=== PATIENT | female | born 1955 | race Caucasian/White ===

== ENCOUNTER → 2018-02-13 | Outpatient (REF) | payer BC, MEDICAID ==
[2018-02-14 13:19] LABS: FERRITIN 252 NG/ML (8-252); IRON (FE) 90 UG/DL (50-170); PERCENT SATURATION 36.7 % (13.2-45.0); TOTAL IRON BINDING CAPACITY 245 UG/DL (250-450)
[2018-02-15 08:15] LABS: FOLATE > 24.0 NG/ML; VITAMIN B12 LEVEL 832 PG/ML
== END ==
LOC: M LAB REF 12:28
DX: D50.9 Iron deficiency anemia, unspecified (principal)
CPT/HCPCS: 82746

== ENCOUNTER → 2018-11-05 | Outpatient (REF) | payer BC, MEDICAID | LOC: M LAB REF 14:49 | PROVIDERS: ATTEND Obstetrics & Gynecology | DX: C50.911 Malignant neoplasm of unspecified site of right female breast (principal) ==

== ENCOUNTER → 2018-11-21 | Outpatient (CLI) | payer MEDICARE, MEDICAID ==
[~2018-11-21] MED LIST: EMLA CREAM 5GM (LIDOCAINE/PRILOCAINE) As Ordered ONE; GASTROGRAFIN SOLUTION 30ML (Q9963) As Ordered ONE; ISOVUE-370 76% 100ML VIAL (Q9967) As Ordered ONE
--- NOTE | 2018-11-21 16:24 | REP ---
CT chest with IV contrast: History: Breast carcinoma. Staging. Left breast. CT contrast dose: 100 mL of intravenous Isovue 370. No comparison chest CT. CT findings: Preliminary digital sanitation officer radiograph is unremarkable. An enhancing mass is seen in the left breast laterally corresponding to the by recently biopsied lesion. This measures 2.[address] There is suspicious left axillary and left subclavian lymphadenopathy. There is one lymph node partially seen just above the clavicle on the left which is incompletely imaged and indeterminate. No mediastinal adenopathy is observed. No hilar adenopathy is seen. There is coronary artery vascular calcification. A right-sided Tdmnzq-M-Elff is noted. No internal mammary adenopathy is seen. No pleural or pericardial effusion is evident. There are numerous subcentimeter small pulmonary nodules bilaterally. I cannot exclude pulmonary metastatic disease. The largest of these measures 5 mm. No bony destructive lesion is appreciated. Impression: 2.4 cm mass in the upper outer quadrant of the left breast with the suspicious left axillary left subclavian, left subpectoral, and possibly left supraclavicular adenopathy. The supraclavicular node is incompletely seen at the top of the imaging field of view. There are multiple subcentimeter pulmonary nodules bilaterally which could represent pulmonary metastasis. The pulmonary nodules in the left upper lobe are new when compared with the [address] study of the left shoulder. No other prior CT imaging. Electronically Signed by Cyrus Carvalho MD 11/21/2018 05:27 P
--- NOTE | 2018-11-21 16:25 | REP ---
CT abdomen and pelvis with IV and oral contrast: History: Breast carcinoma. Staging. No comparison CTs. CT contrast dose: 100 ml of intravenous Isovue 370. CT findings: The liver and the spleen are normal in size and homogeneous in texture. Normal adrenal glands are seen bilaterally. There is an accessory splenule posterior to the spleen. No abnormalities noted in the gallbladder. No pancreatic mass or cyst is seen. No upper abdominal adenopathy is appreciated. No retroperitoneal mass or adenopathy is observed. There is a retroaortic left renal vein noted incidentally. No abdominal wall defect is seen. Uterus is retroverted and tipped to the right. No uterine or ovarian mass is seen. No ascites. Normal urinary bladder. Small and large intestinal bowel loops are normal in appearance. A normal appendix is seen. No bony destructive lesion is appreciated. There is a wedge compression deformity at the L1 vertebral body. There is approximately 50% loss of anterior vertebral body height at this level. In addition there is a radiolucency with sclerotic margins in the superior endplate at L5 posteriorly and to the left consistent with a Schmorl's node. Degenerative spondylosis changes are noted. These changes appear chronic. Impression: No evidence to suggest intra-abdominal metastasis. Wedge compression fracture deformity at the L1 and degenerative spondylosis changes which appear chronic in the lumbar spine. Electronically Signed by Cyrus Carvalho MD 11/21/2018 05:27 P
== END ==
LOC: M RAD 12:01
PROVIDERS: ATTEND Internal Medicine Hematology & Oncology
DX: C50.412 Malignant neoplasm of upper-outer quadrant of left female breast (principal); R91.8 Other nonspecific abnormal finding of lung field; R59.0 Localized enlarged lymph nodes
CPT/HCPCS: 71260; 74177; Q9963; Q9967

== ENCOUNTER → 2018-12-05 | Outpatient (CLI) | payer MEDICARE, MEDICAID ==
[~2018-12-05] MED LIST changes: +ALPH0.156; +B COTAB3 PO; +DORZ2SOL4; -EMLA CREAM 5GM (LIDOCAINE/PRILOCAINE) As Ordered ONE; +FERR240T PO; -GASTROGRAFIN SOLUTION 30ML (Q9963) As Ordered ONE; +GLUC1KIT PO; +INSUHUMDS; +INSULANT; -ISOVUE-370 76% 100ML VIAL (Q9967) As Ordered ONE; +LISI10TA4 PO; +MAGN1CAP PO; +MOME50SP NARES; +MULT1TAB18 PO; +PANT20TA2 PO; +PRENTAB45 PO; +RED600TA PO; +TIMO0.5S29; +TRIA37.5 PO; +VITA200016 PO; +VITAE20CA PO; +ZYRT10CA5 PO
--- NOTE | 2018-12-05 22:26 | ECHO ---
DATE OF PROCEDURE: 12/05/2018 REFERRING PHYSICIAN: Dr. Luba Snyder INDICATION: Chemotherapy that may affect the heart. HEIGHT: 62 inches WEIGHT: 142 pounds 2D MEASUREMENTS: Left ventricle diastole: 4.1 cm Left atrium: 3.0 cm Aortic root: 2.5 cm Ventricular septum: 0.82 cm Posterior wall: 0.81 cm Inferior vena cava: 2.0 cm with more than 50% respiratory variation. DOPPLER MEASUREMENTS: Trace aortic regurgitation. Peak aortic valve velocity 145 cm/s LVOT velocity: 120 cm/s LVOT VTI: 28.4 cm Very mild mitral regurgitation. Mitral E velocity: 117 cm/s Mitral A velocity: 106 cm/s Mitral deceleration time: 225 ms Pulmonary artery systolic pressure: 17 mmHg MITRAL ANNULAR TISSUE DOPPLER: E prime septal: 6.7 cm/s E prime lateral: 6.9 cm/s DESCRIPTION: Rhythm was sinus. Image quality was fair. No pericardial effusion. This is a 2D, M-mode, color flow Doppler and pulse wave Doppler examination that included mitral annular tissue Doppler. CONCLUSIONS: 1. Normal left ventricle internal dimensions and wall thickness. Normal regional left ventricle (LV) wall motion and wall thickening. Normal LV systolic function. Left ventricular ejection fraction (LVEF) 71% (3D quantitation). Normal LV diastolic function for age. No regional wall motion abnormalities of the left ventricle. 2. Normal right ventricle size and systolic function. 3. Mild aortic valve sclerosis of the three-cuspid aortic valve. Trace aortic regurgitation. 4. Very mild mitral annular calcification. Very mild mitral regurgitation. 5. Otherwise, normal appearing echocardiogram Doppler findings.
== END ==
LOC: M CARPUL 08:50
PROVIDERS: ATTEND Internal Medicine Hematology & Oncology
DX: C50.919 Malignant neoplasm of unspecified site of unspecified female breast (principal); Z79.899 Other long term (current) drug therapy

== ENCOUNTER → 2018-12-24 | Outpatient (CLI) | payer MEDICARE, MEDICAID ==
--- NOTE | 2018-12-25 09:34 | REP ---
PET/CT: History: Staging breast carcinoma. Comparisons: Comparison chest CT study November 21, 2018. TECHNIQUE: 56 minutes following the intravenous injection of a 8.1 mCi dose of F-18 FDG, three-dimensional PET scintigraphy is acquired from the skull base to the proximal thighs. Triplanar noncontrast CT scanning is acquired through the same anatomic range for attenuation correction, and image registration with scan parameters optimized to minimize radiation exposure to the patient. PET scintigraphy and CT datasets were fused and displayed on a workstation with multiplanar and projection display capability. PET/CT Findings: The biopsy-proven malignant mass in the left inferolateral breast is hypermetabolic with maximum standard uptake value 7.2. There are multiple hypermetabolic left axillary lymph nodes in the most avid of which has a maximum standard uptake value of 6.35. There is a very small but mildly hypermetabolic left supraclavicular lymph node with maximum standard uptake value 2.79. No internal mammary or mediastinal hypermetabolic uptake is seen. There are multiple noncalcified pulmonary nodules all of which are well under a centimeter in size. There is observable uptake in one of the left upper lobe nodules but it is not hypermetabolic, maximum SUV value 1.25. No abnormal hypermetabolic uptake is seen within the thorax. No abnormal uptake is seen in the abdomen or pelvis. This study is otherwise unremarkable. Impression: Hypermetabolic uptake in the known left breast mass, left axillary adenopathy, left supraclavicular adenopathy. No hypermetabolic uptake is seen in any of the small subcentimeter pulmonary nodules noted bilaterally. Electronically Signed by Cyrus Carvalho MD 12/25/2018 10:15 A
== END ==
LOC: M PLARAD 15:25
PROVIDERS: ATTEND Internal Medicine Hematology & Oncology
DX: C50.912 Malignant neoplasm of unspecified site of left female breast (principal); R59.0 Localized enlarged lymph nodes; R91.8 Other nonspecific abnormal finding of lung field
CPT/HCPCS: 78815; A9552

== ENCOUNTER → 2018-12-31 | Outpatient (CLI) | payer MEDICARE, MEDICAID ==
[~2018-12-31] MED LIST changes: +PROHANCE 279.3MG/ML 15ML VIAL (A9576) As Ordered ONE
--- NOTE | 2018-12-31 13:29 | REP ---
MRI BRAIN WITHOUT AND WITH IV GADOLINIUM: HISTORY: Headaches. Question brain metastasis. Breast carcinoma. Comparison PET/CT study December 24, 2018. TECHNIQUE: Axial and sagittal imaging planes are utilized for T1- and T2-weighted scans. Sequences include spin-echo, fast spin echo, FLAIR, and diffusion weighted sequences. Gadolinium enhancement dose is 6 ml of intravenous ProHance. MRI FINDINGS: Craniocervical junction and upper cervical cord are normal. No bony calvarial destructive lesion is seen. No intraorbital abnormality is observed. There is no MR evidence of significant paranasal sinus disease. The skull base and deep facial soft tissues are unremarkable. Diffusion weighted scan show no evidence to suggest acute ischemia or other cause of restricted diffusion. Post-gadolinium enhanced images demonstrate artifactual linear signal on either side in the occipital lobes related to an aliasing artifact. There is no abnormal intracranial gadolinium enhancement. Enhancement is seen in normal vascular structures. There is no evidence of mass, infarct, hemorrhage or midline shift. IMPRESSION: There is no evidence of intracranial metastasis. Electronically Signed by Cyrus Carvalho MD 12/31/2018 02:46 P
== END ==
LOC: M RAD 11:16
PROVIDERS: ATTEND Internal Medicine
DX: C50.512 Malignant neoplasm of lower-outer quadrant of left female breast (principal); R51 Headache
CPT/HCPCS: 70553; A9576

== ENCOUNTER 2019-01-16 15:24 | Emergency (ER) | payer MEDICARE, MEDICAID ==
[~2019-01-16] VITALS: Ht 157.5 cm; Wt 64.7 kg
[~2019-01-16 15:24] MED LIST changes: +DECA4TAB PO; +ONDA8TAB8 PO; -PROHANCE 279.3MG/ML 15ML VIAL (A9576) As Ordered ONE; +SERT25TA85 PO
[2019-01-16 16:38] LABS: HEMATOCRIT 36.2 % (36.0-47.0); HEMOGLOBIN 11.7 g/dl (12.0-15.5); MEAN CORPUSCULAR HEMOGLOBIN 30.2 pg (27.0-33.0); MEAN CORPUSCULAR HGB CONC 32.3 g/dl (32.0-36.5); MEAN CORPUSCULAR VOLUME 93.3 fl (80.0-96.0); PLATELET COUNT, AUTOMATED 181 10^3/uL (150-450); RED BLOOD COUNT 3.88 10^6/uL (4.00-5.40); WHITE BLOOD COUNT 11.9 10^3/uL (4.0-10.0)
[2019-01-16] MEDS ORDERED: GI COCKTAIL 50ML BTL(HYOSCYAMINE/MAALOX/LIDOCAINE VISCOUS)(1:3:1) PO ONE (16:45)
--- NOTE | 2019-01-16 16:58 | REP ---
Portable chest x-ray: Single view: History: Chest pain. Findings: A right-sided Wlbltk-B-Ruig catheter seen in place with its tip in the expected location of the superior vena cava. EKG electrodes are seen. The right hemidiaphragm is slightly elevated. No infiltrate is seen. Pleural angles are sharp. Heart is not enlarged. Impression: No active disease. Somewhat elevated right hemidiaphragm. Right-sided Eymdah-U-Fhht catheter. Electronically Signed by Cyrus Carvalho MD 01/17/2019 01:42 P
[2019-01-16 17:03] LABS: BLOOD UREA NITROGEN 24 MG/DL (7-18); CALCIUM LEVEL 8.3 MG/DL (8.8-10.2); CARBON DIOXIDE LEVEL 27 MEQ/L (21-32); CHLORIDE LEVEL 107 MEQ/L (98-107); CPK CREATINE PHOSPHOKINASE 48 U/L (26-192); GLOMERULAR FILTRATION RATE > 60.0 (>45); GLUCOSE, FASTING 180 MG/DL (70-100); MB/CK RELATIVE INDEX 5.21 (< OR =4); POTASSIUM SERUM 4.1 MEQ/L (3.5-5.1); SODIUM LEVEL 141 MEQ/L (136-145); TROPONIN I 0.08 NG/ML (< 0.10)
[2019-01-16] MEDS ORDERED: ISOVUE-370 76% 125ML VIAL (Q9967 PER ML) As Ordered ONE (17:32)
[2019-01-16 17:44] LABS: LYMPHOCYTES 14 % (16-52); MONOCYTES 1 % (0-8); NEUTROPHILS 84 % (35-75)
[2019-01-16 17:46] LABS: PLATELET ESTIMATE NORMAL (NORMAL)
[2019-01-16] MEDS ORDERED: SUCR1SS PO (18:26)
[2019-01-16 18:30] VITALS: BP 152/67
--- NOTE | 2019-01-16 18:46 | REP ---
CT ANGIO CHEST: HISTORY: Chest pain. CONTRAST: Isovue-370, 75 mL COMPARISON: CT chest 11/21/2018. There are no filling defects in the main, right and left pulmonary arteries or their branches. Multiple tiny nodules are present in the lungs that may represent metastases. There is no pleural effusion. The heart is normal in size. There is no mediastinal mass. A hiatal hernia is present. Degenerative change is present in the thoracic spine. A mass is present in the left breast. This is incompletely seen. Several enlarged lymph nodes 1.4 to 1.8 cm are present in the left axilla. IMPRESSION: 1. There is no pulmonary embolism. 2. There are multiple tiny parenchymal nodules in the lungs that may represent metastases. 3. Left breast mass incompletely seen in the present examination. 4. Left axillary lymphadenopathy. Electronically Signed by Benny Nowak MD 01/16/2019 06:48 P
--- NOTE | 2019-01-17 06:25 | ECGEPIP ---
Stationary ECG Study [facility] - ED Test Date: 2019-01-16 Pat Name: PRESTON YANEZ Department: Room: - Gender: F Assistant Warehouse Manager: : 1955 Requested By: GILBERT RADER PA-C. Order Number: [id number] Reading MD: Kraig Ho Measurements Intervals [place] Rate: 89 P: 80 MN: 146 QRS: -35 QRSD: 75 T: 70 QT: 343 QTc: 418 Interpretive Statements SINUS RHYTHM LEFT ATRIAL ENLARGEMENT LEFT AXIS DEVIATION NO PRIORS FOR COMPARISON Electronically Signed On 01-17-2019 6:25:24 EDT by Kraig Ho
--- NOTE | 2019-01-17 10:31 | ED PDOC ---
Post-Departure Follow-Up dr mayer faxed formal report of cta chest for fu Sole Montilla MD Jan 17, 2019 10:31
[2019-01-22] MEDS ORDERED: SUCR1SS PO (07:55)
[2019-01-22] MEDS ORDERED: SUCR1SUS PO (10:56)
--- NOTE | 2019-01-22 13:58 | ED PDOC ---
Post-Departure Follow-Up Dr mayer unable to follow up w pt. pt sent a certified letter regarding CTA. When pt calls back please personally help that pt get into a surgeon's office. Call surgeon and help facilitate the appt. Sole Montilla MD Jan 22, 2019 13:58
[2019-01-30] MEDS ORDERED: DIPH2.5T14 PO ×2 (08:54→08:56)
[2019-02-03] MEDS ORDERED: CLAR10CA3 PO (10:10)
== END 2019-01-16 18:52 | disposition home or self-care (01) ==
LOC: M ED 15:24
DX: K21.0 Gastro-esophageal reflux disease with esophagitis (principal); R07.89 Other chest pain; R11.0 Nausea; I10 Essential (primary) hypertension; E10.319 Type 1 diabetes mellitus with unspecified diabetic retinopathy without macular edema; C50.012 Malignant neoplasm of nipple and areola, left female breast; Z79.899 Other long term (current) drug therapy
CPT/HCPCS: 71045; 71275; 80048; 82550; 82553; 84484; 85025; 85379; 93005; 93041; 94760; 99285; Q9967

== ENCOUNTER → 2019-02-25 | Outpatient (REF) | payer MEDICARE, MEDICAID ==
[~2019-02-25] MED LIST changes: +ALLE10TA62 PO; +CLAR10CA3 PO; +DIPH2.5T14 PO; +MULT1TAB8 PO; +PANT40TA3 PO; +SUCR1SS PO; +SUCR1SUS PO
== END ==
LOC: M LAB REF 12:16
PROVIDERS: ATTEND Nurse Practitioner Adult Health
DX: E10.69 Type 1 diabetes mellitus with other specified complication (principal); E10.311 Type 1 diabetes mellitus with unspecified diabetic retinopathy with macular edema

== ENCOUNTER → 2019-03-18 | Outpatient (CLI) | payer MEDICARE, MEDICAID ==
--- NOTE | 2019-03-18 19:18 | ECHO ---
DATE OF PROCEDURE: 03/18/2019 REFERRING PROVIDER: ZELALEM Perez INDICATION: Chemotherapy. Height 160 cm, weight 64 kg. DIMENSIONS IVS: 0.9 LV: 3.6 LVPW: 1.1 LA: 3.1 Aorta: 2.8 IVC: 2.3 Mitral E wave velocity: 115 A wave: 117 E prime septal: 9.5 E prime lateral: 9.0 FINDINGS: The study is of acceptable technical quality. There are poor parasternal views but good apical views. Left ventricle is normal size and has hyperdynamic contractility. I estimate left ventricular ejection fraction (LVEF) 70-75%. No segmental wall motion abnormalities are appreciated. Right ventricle also appears normal. Both atria appear normal. Aortic, mitral and tricuspid valves appear normal. Pulmonic valve was not visualized. Trivial pericardial effusion is noted. Inferior vena cava is dilated, and there is no appreciable collapse with respiration indicative of likely elevated central venous pressure. Aortic root is normal. Aortic arch and abdominal aorta also appear normal. Doppler interrogation reveals no aortic stenosis and mild aortic insufficiency. There is mild mitral and trace tricuspid insufficiency. Calculated pulmonary artery pressure is probably in 30s corresponding to mild pulmonary hypertension. Mitral inflow pattern and tissue Doppler imaging of mitral annulus revealed probably normal diastolic function even though mitral E and A waves have approximately same velocities. CONCLUSIONS: 1. Study is of acceptable technical quality. 2. Normal left ventricular (LV) size with hyperdynamic LV systolic function and probably normal diastolic function. 3. Mild mitral and aortic insufficiency. 4. High central venous pressure and at least mild pulmonary hypertension. 5. Trivial pericardial effusion. COMMENT: Subacute bacterial endocarditis (SBE) prophylaxis is not recommended.
== END ==
LOC: M CARPUL 09:18
PROVIDERS: ATTEND Nurse Practitioner Family
DX: C50.912 Malignant neoplasm of unspecified site of left female breast (principal); I38 Endocarditis, valve unspecified

== ENCOUNTER → 2019-03-28 | Outpatient (CLI) | payer MEDICARE, MEDICAID ==
--- NOTE | 2019-03-28 09:35 | REP ---
CT NECK WITHOUT CONTRAST: HISTORY: Breast carcinoma restaging. The naso-, shivam- and hypopharynx, larynx and subglottic trachea are normal in appearance. The salivary glands are normal in size and density. A 3 mm hypodensity is present in the left thyroid lobe. This most likely represents a cyst. The right thyroid lobe is normal in size and density. Small lymph nodes less than 1 cm in size are present in the internal jugular chains, posterior triangles and submandibular areas. Atherosclerotic calcification is present at the carotid bifurcations. Degenerative change is present in the cervical spine. Scarring is present in the left lung apex. The sinuses are clear. IMPRESSION: 1. There is no neck mass or adenopathy. 2. There is a 3 mm hypodensity in the left thyroid lobe. This most likely represents a cyst. Electronically Signed by Benny Nowak MD 03/28/2019 10:05 A
--- NOTE | 2019-03-28 10:47 | REP ---
CT chest without contrast: History: Restaging breast carcinoma, stage 2-[address] study January 16, 2019. CT study from November 21, [address] findings: Preliminary digital magnetic tester radiograph demonstrates elevation of the right hemidiaphragm. There is some discoid atelectasis in the right middle lobe and lower lobe distribution associated with this. The previously noted left axillary lymphadenopathy is radiographically resolved. No supraclavicular adenopathy is seen. A right-sided Netypp-B-Hmkd catheter is noted. Coronary artery vascular calcification is noted. There is no evidence of pleural or pericardial effusion. The previously noted pulmonary nodular densities are virtually resolved as well. There are two or three residual tiny 2-3 mm nodules visible, one in the right upper lobe and the other two in the right lower lobe. No acute bony abnormality is appreciated. There is old wedge compression deformity in one of the upper lumbar vertebrae unchanged. Heterogeneous fibroglandular tissue is seen in the breast parenchyma bilaterally. The previously noted left breast mass is not definitely apparent although this was most conspicuous due to its contrast enhancement on the November 21, 2018 study. No adrenal lesion is seen. The visualized upper abdominal structures are unremarkable. Impression: Elevated right hemidiaphragm and atelectatic changes in the right middle and lower lobes. Significant response noted. No new metastatic lesions seen. Electronically Signed by Cyrus Carvalho MD 03/28/2019 03:56 P
== END ==
LOC: M RAD 08:54
PROVIDERS: ATTEND Nurse Practitioner Family
DX: C50.912 Malignant neoplasm of unspecified site of left female breast (principal); J98.11 Atelectasis; E07.9 Disorder of thyroid, unspecified

== ENCOUNTER → 2019-06-10 | Outpatient (CLI) | payer MEDICARE, MEDICAID ==
[~2019-06-10] MED LIST changes: +BIOT10TA2 PO; +KETO2CR TOP; +LEVO0.5S15 OP
--- NOTE | 2019-06-10 11:04 | REP ---
Duplex extremity venous ultrasound: Bilateral lower extremities. History: History of bilateral leg swelling. Question DVT. Findings: The deep veins are anechoic and fully compressible from the groin to the popliteal fossa in the left and right lower extremity. Color flow imaging is homogeneous. Spectral Doppler interrogation demonstrates intact respiratory variation in flow and normal manual augmentation of flow. There is no evidence of deep vein thrombosis. Impression: Negative bilateral lower extremity duplex venous ultrasound. No evidence of deep vein thrombosis. Electronically Signed by Cyrus Carvalho MD 06/10/2019 10:55 A
--- NOTE | 2019-06-10 11:30 | MEDONCTEEN ---
Date/Time of Encounter Date of Encounter: Jun 10, 2019 Time of Encounter: 11:30 Telephone Encounter The patient was called voice mail kicked in message left to call if any questions Luba Snyder MD Jun 10, 2019 11:30
--- NOTE | 2019-06-10 18:55 | ECHO ---
DATE OF PROCEDURE: 06/10/2019 REFERRING PHYSICIAN: Luba Snyder INDICATION: Chemotherapy. Height 160 cm, weight 64 kg. DIMENSIONS: IVS: 0.8 LV: 4.1 LVPW: 0.7 LA: 2.9 Aorta: 2.7 IVC: 1.8 Mitral E wave velocity: 123 A wave: 117 FINDINGS: The study is of good technical quality. The patient is in sinus rhythm. Left ventricle is of normal size and systolic function. I estimate left ventricular ejection fraction (LVEF) 65-70%. No segmental wall motion abnormalities were appreciated. Right ventricle is also normal size and systolic function. Both atria appear normal. Aortic valve appears normal. It is tricuspid and has preserved mobility. Same applies for mitral and tricuspid valves, which appear structurally normal. Pulmonic valve was not well seen. No pericardial effusion is noted. Inferior vena cava is normal size. Aortic root is normal. Aortic arch and abdominal aorta were poorly visualized. Doppler interrogation of aortic valve reveals no stenosis and mild insufficiency. There is trace mitral insufficiency. Tricuspid valve is functionally competent. There is only limited evaluation of diastolic function with absent tissue Doppler velocities of mitral annulus, but based on available information, the patient likely has preserved left ventricular diastolic function. CONCLUSIONS: 1. Study is of good technical quality. 2. Normal left ventricular (LV) size and systolic function and likely also normal diastolic function. 3. Mild aortic insufficiency. 4. Normal central venous pressure. 5. Unable to estimate pulmonary artery pressure but no signs to suggest pulmonary hypertension. COMMENT: Subacute bacterial endocarditis (SBE) prophylaxis is not recommended.
== END ==
LOC: M RAD 07:49
PROVIDERS: ATTEND Internal Medicine Hematology & Oncology
DX: R22.43 Localized swelling, mass and lump, lower limb, bilateral (principal); C50.912 Malignant neoplasm of unspecified site of left female breast; Z79.899 Other long term (current) drug therapy

== ENCOUNTER → 2019-08-26 | Outpatient (CLI) | payer MEDICARE, MEDICAID ==
[~2019-08-26] MED LIST changes: +VITA400C5 PO
--- NOTE | 2019-08-27 09:34 | REP ---
PET/CT: History: Restaging malignant neoplasm of the breast with the known laurent and pulmonary parenchymal nodular metastasis. Status post chemotherapy. Comparisons: Comparison PET/CT study December 24, 2018. TECHNIQUE: 50 minutes following the intravenous injection of a 8.55 mCi dose of F-18 FDG, three-dimensional PET scintigraphy is acquired from the skull base to the proximal thighs. Triplanar noncontrast CT scanning is acquired through the same anatomic range for attenuation correction, and image registration with scan parameters optimized to minimize radiation exposure to the patient. PET scintigraphy and CT datasets were fused and displayed on a workstation with multiplanar and projection display capability. PET/CT Findings: There is significant improvement. There is no longer evidence of a mass or hypermetabolic uptake in the left breast. Maximum standard uptake value in the inferolateral aspect of the left breast is normal at 1.7. There is no evidence of axillary adenopathy or axillary hypermetabolic uptake. No supraclavicular adenopathy or hypermetabolic uptake is seen. Head and neck soft tissues are unremarkable. No abnormal hypermetabolic uptake is seen within the chest cavity or mediastinum or hilar regions. There is a new pulmonary finding however in that there is a fairly large quantity of inspissated endobronchial mucoid material in the right bronchus intermedius and right lower lobe bronchi centrally. This is associated with some right lower lobe discoid atelectasis at the base. This is a new finding. There is bronchial wall calcification noted bilaterally. There is no hypermetabolic uptake associated with the inspissated endobronchial material. In the abdomen and pelvis, there is normal hepatic, splenic, gastrointestinal, and genitourinary FDG distribution. No abnormal hypermetabolic uptake is seen in the abdomen or pelvis. The scan is otherwise unremarkable. Impression: PET scintigraphy is significantly improved with resolution of previously noted hypermetabolic uptake. No abnormal hypermetabolic uptake is seen today. There is a new finding however in the lungs of note. There is a fairly large amount of inspissated endobronchial mucoid material in the bronchus intermedius and central bronchi of the right lower lobe with right lower lobe plate-like atelectasis. No hypermetabolic uptake is seen associated with this. Electronically Signed by Cyrus Carvalho MD 08/27/2019 09:51 A
== END ==
LOC: M PLARAD 14:24
PROVIDERS: ATTEND Internal Medicine Hematology & Oncology
DX: C50.412 Malignant neoplasm of upper-outer quadrant of left female breast (principal); C78.00 Secondary malignant neoplasm of unspecified lung; Z92.21 Personal history of antineoplastic chemotherapy
CPT/HCPCS: 78815; A9552

== ENCOUNTER → 2019-09-02 | Outpatient (CLI) | payer MEDICARE, MEDICAID ==
--- NOTE | 2019-09-02 19:47 | ECHO ---
DATE OF PROCEDURE: 09/02/2019 REFERRING PHYSICIAN: Dr. Emily Alvarez INDICATION: Chemotherapy. Height 160 cm, weight 62 kg. DIMENSIONS: IVS: 0.9 LV: 3.9 LVPW: 1.0 LA: 3.1 Aorta: 2.7 RV: 2.7 IVC: 1.8 Left atrial volume index: 18 Mitral E wave velocity: 129 A wave: 123 E prime septal: 7.8 E prime lateral: 10.6 FINDINGS: The study is of good technical quality. The patient is in sinus rhythm. Left ventricle is normal size and has normal systolic function, estimated left ventricular ejection fraction (LVEF) around 65%. Right ventricle is also normal size and systolic function. Both atria appear normal. All four cardiac valves were well seen and appear normal. No pericardial effusion is noted. Inferior vena cava is normal size. Aortic root, aortic arch and visualized segment of abdominal aorta all appear normal. Doppler interrogation of aortic valve reveals no stenosis and trace insufficiency. There is also trace mitral and tricuspid insufficiency. Pulmonic valve also exhibits trivial insufficiency. Mitral inflow pattern and tissue Doppler imaging of mitral annulus revealed normal diastolic function. CONCLUSIONS: 1. Study is of good technical quality. 2. Normal left ventricular (LV) size, systolic and diastolic function. 3. Mild aortic insufficiency. 4. Trace mitral, tricuspid and pulmonic insufficiency. 5. Normal central venous pressure. 6. Unable to estimate pulmonary artery pressure. COMMENT: Subacute bacterial endocarditis (SBE) prophylaxis is not recommended.
== END ==
LOC: M CARPUL 10:00
PROVIDERS: ATTEND Internal Medicine Medical Oncology
DX: C50.412 Malignant neoplasm of upper-outer quadrant of left female breast (principal); C78.00 Secondary malignant neoplasm of unspecified lung; Z92.21 Personal history of antineoplastic chemotherapy

== ENCOUNTER → 2019-12-08 | Outpatient (CLI) | payer MEDICARE, MEDICAID ==
[~2019-12-08] MED LIST changes: +B COCAP4 PO; +SUCR1ORA PO; -SUCR1SUS PO; +VITA1CAP15 PO; -VITA400C5 PO; +[UNRECOGNIZED DRUG - CODE] PO
--- NOTE | 2019-12-10 11:22 | ECHO ---
DATE OF PROCEDURE: 12/08/2019 DATE OF : 1955 AGE: 63 GENDER: Female. HEIGHT: 62 inches. WEIGHT: 132 pounds. BODY SURFACE AREA: 1.6 meters squared OUTPATIENT REFERRING PHYSICIAN: [facility] INDICATION: Breast cancer - potentially cardiotoxic chemotherapy. MEASUREMENTS 2-D Measurements: RV: 2.5 cm LV: 4.0 cm Septum: 0.9 cm Posterior wall: 0.9 cm Aortic root: 2.4 cm LA: 2.9 cm LVEF: 70% Doppler Measurements: AV: 1.89 m/s LVOT: 1.2 m/s LVOT diameter: 2.0 cm MV - E 130 A 118 E/A ratio 1.1 Early mitral deceleration time: 158 ms E prime medial: 8.5 A prime medial: 11 E prime lateral: 10 Average, E/E prime ratio: 14 PV: 0.8 m/s Pulmonary artery acceleration time: 126 ms PASP: 24 mmHg IVC: 1.9 cm COMMENTS: Normal sinus rhythm without intraventricular conduction disturbance. M-mode and two-dimensional echocardiography was performed with pulsed, continuous wave, color flow and tissue Doppler studies. Normal left ventricular size, wall thickness and wall motion. Normal left atrial size and Doppler assessment of LV diastolic function and estimated mean left atrial pressure. Normal right heart chamber sizes and motion with normal pulmonary arterial pressure. Normal IVC size and collapse against an elevated central venous pressure. Normal-appearing aortic valve without LV outflow tract obstruction, but very mild insufficiency. Normal aortic root and ascending aortic diameters. Normal appearing and functioning mitral valve with very mild insufficiency (physiologic). Normal appearing tricuspid valve with mild insufficiency. No apparent intracardiac mass or pericardial effusion.
== END ==
LOC: M CARPUL 09:15
PROVIDERS: ATTEND Internal Medicine Hematology & Oncology
DX: C50.412 Malignant neoplasm of upper-outer quadrant of left female breast (principal); C78.00 Secondary malignant neoplasm of unspecified lung; Z79.899 Other long term (current) drug therapy

== ENCOUNTER → 2020-03-16 | Outpatient (CLI) | payer MEDICARE, MEDICAID ==
[~2020-03-16] MED LIST changes: +COLE1TA PO
--- NOTE | 2020-03-16 21:59 | ECHO ---
DATE OF PROCEDURE: 03/16/2020 REFERRING PHYSICIAN: Dr. Emily Alvarez INDICATION: Malignant neoplasm, chemotherapy. Height 157 cm, weight 61 kg. DIMENSIONS: IVS: 1.0 LV: 3.7 LVPW: 1.1 LA: 3.0 Aorta: 2.5 IVC: 0.9 Mitral E wave velocity: 98 A wave: 110 E prime septal: 7.0 E prime lateral: 8.4 FINDINGS: The study is of acceptable technical quality. The patient is in sinus rhythm. Left ventricle is of normal size and has normal systolic function: I estimate left ventricular ejection fraction (LVEF) 65-70%. No segmental wall motion abnormalities are appreciated. Right ventricle also normal size and systolic function. Both atria appear normal. Aortic, mitral and tricuspid valves appear grossly normal, pulmonic valve was not well visualized. No pericardial effusion is present. Inferior vena cava is normal size. Aortic root is normal. Aortic arch and abdominal aorta were poorly seen. Doppler interrogation reveals trace aortic, mitral and tricuspid insufficiency. Unfortunately, quality of TR jet was not sufficient in order to estimate pulmonary artery pressure. Mitral inflow pattern and tissue Doppler imaging of mitral annulus revealed grade 1 diastolic dysfunction. CONCLUSIONS: 1. Study is of acceptable technical quality, the patient is in sinus rhythm. 2. Normal left ventricular (LV) size with normal LV systolic function and grade 1 diastolic dysfunction. 3. Trace aortic, mitral and tricuspid insufficiency. 4. Normal central venous pressure but unable to estimate pulmonary artery pressure. COMMENT: Subacute bacterial endocarditis (SBE) prophylaxis is not recommended.
== END ==
LOC: M CARPUL 08:27
PROVIDERS: ATTEND Internal Medicine Medical Oncology
DX: C50.919 Malignant neoplasm of unspecified site of unspecified female breast (principal); Z79.899 Other long term (current) drug therapy

== ENCOUNTER → 2020-03-23 | Outpatient (CLI) | payer MEDICARE, MEDICAID ==
[~2020-03-23] MED LIST changes: +GASTROGRAFIN SOLUTION 30ML (Q9963) As Ordered ONE; +ISOVUE-370 76% 100ML VIAL As Ordered ONE
--- NOTE | 2020-03-23 14:54 | REP ---
CT CHEST WITH IV CONTRAST: TECHNIQUE: Axial contrast-enhanced images from the thoracic inlet to the upper abdomen using 100 mL Isovue-370 intravenous contrast material with multiplanar reformations. COMPARISON: CT 03/28/2019 There is again elevation of the right hemidiaphragm. There are bibasilar fibroatelectatic changes. No suspicious parenchymal nodule is seen. The heart is normal in size. The thoracic aorta demonstrates no aneurysm or dissection. There is no significant mediastinal, hilar, or chest wall lymphadenopathy. There is no pleural or pericardial effusion. There is a small hiatal hernia. There are degenerative changes of the spine. There is an old compression deformity of L1, which is stable. IMPRESSION: Chronic findings as discussed in detail above. No evidence of new pulmonary nodule or adenopathy in the chest. Electronically Signed by Rodrigo Clayton MD 03/23/2020 02:57 P
--- NOTE | 2020-03-23 15:06 | REP ---
CT ABDOMEN WITH AND WITHOUT CONTRAST: TECHNIQUE: Axial noncontrast images through the abdomen followed by contrast-enhanced images through the abdomen and pelvis using 100 mL Isovue-370 intravenous contrast material, with coronal and sagittal reformations. COMPARISON: 11/21/2018 The liver demonstrates no mass. The gallbladder is grossly unremarkable. The spleen is normal in size with no intrinsic abnormality. The adrenal glands are normal. There is no pancreatic duct dilatation. There is an exophytic cyst anteriorly of the pancreatic head which measures 1.3 x 16 cm. Posterior to that in the pancreatic head, there appears to be an oval cystic structure approximately 1.5 cm in diameter. There appears to be a 1 cm cyst in the upper pole of the right kidney. A subcentimeter cyst is seen in the anterior mid left kidney. There is no hydronephrosis bilaterally. There is atherosclerotic calcification of the abdominal aorta without aneurysm. There is no adenopathy or free fluid. There are degenerative changes of the spine with an old chronic compression deformity of L1. IMPRESSION: Two cystic structures seen in the region of the head of the pancreas. Recommend MRI of the pancreas with and without gadolinium to further evaluate. Otherwise, no other evidence of suspicious adenopathy or mass in the abdomen. Electronically Signed by Rodrigo Clayton MD 03/23/2020 03:09 P
--- NOTE | 2020-03-23 15:43 | REP ---
SOFT-TISSUE NECK CT STUDY WITH IV CONTRAST: HISTORY: Metastatic breast cancer. Comparison CT study March 28, 2019. 100 mL of intravenous Isovue [address] FINDINGS: A right-sided Ovjcsh-M-Knxs catheter is noted. Thyroid lobes are normal in size. There is a tiny hypodensity in the left lobe again noted consistent with a small cyst. This is unchanged. There is no evidence of cervical adenopathy or neck mass. Parotid and submandibular glands are normal and symmetric. Vascular calcification is noted in the carotid bifurcations as before. No intraorbital abnormality is seen. The visualized sinuses are clear. Some vascular calcification is seen in the distal internal carotid arteries. No bony destructive lesion is seen. The lung apices are clear. IMPRESSION: There is no evidence of neck mass or adenopathy. Electronically Signed by Cyrus Carvalho MD 03/23/2020 06:00 P
== END ==
LOC: M RAD 09:29
PROVIDERS: ATTEND Internal Medicine Medical Oncology
DX: C50.919 Malignant neoplasm of unspecified site of unspecified female breast (principal); K44.9 Diaphragmatic hernia without obstruction or gangrene; E04.1 Nontoxic single thyroid nodule; K86.2 Cyst of pancreas; N28.1 Cyst of kidney, acquired
CPT/HCPCS: 70491; 71260; 74160; Q9963; Q9967

== ENCOUNTER → 2020-04-13 | Outpatient (CLI) | payer MEDICARE, MEDICAID ==
[~2020-04-13] MED LIST changes: -GASTROGRAFIN SOLUTION 30ML (Q9963) As Ordered ONE; -ISOVUE-370 76% 100ML VIAL As Ordered ONE; +PROHANCE 279.3MG/ML 15ML VIAL As Ordered ONE
--- NOTE | 2020-04-13 17:20 | REP ---
MRI ABDOMEN AND PANCREAS WITHOUT AND WITH IV CONTRAST: HISTORY: Abnormal cystic structure pancreatic head. History breast carcinoma. The gadolinium enhancement dose is 13 mL of intravenous ProHance. Axial and coronal T1- and T2-weighted scans include spin-echo, fast spin-echo, in and [id number], and dynamically acquired post contrast images. Comparison is made with CT study of the abdomen dated March 23, 2020 and November 21, 2018. MRI FINDINGS: T2-weighted scans show no evidence of intrahepatic or extrahepatic biliary ductal dilation. There are mildly prominent ducts in the head of the pancreas. The pancreatic duct in the body and tail of the pancreas is not dilated. Along the anterior edge of the pancreatic head, there is an oval-shaped cyst measuring 1.8 cm in greatest diameter corresponding to the cystic lesion seen on CT study. Inferior and medial to this, there is an elongate cystic area which may be a focally dilated duct. This measures 2.2 cm in greatest length by 0.6 cm by 0.8 cm. These show homogeneous hyperintense T2 signal and homogeneous hypointense T1 signal on precontrast study. There is no evidence of liver lesion. No other pancreatic lesion is seen. No solid appearing lesion is observed. IMPRESSION: There are two small nonenhancing cystic lesions in the pancreatic head as discussed above and as seen on recent CT study. These areas may be visible in retrospect on the November 21, 2018 study and are slightly larger. Mildly prominent pancreatic head ducts are again seen, unchanged. Possibilities include small pancreatic pseudocyst versus small cystic neoplasm such as intraductal papillary mucinous neoplasm (IPMN). No solid component or contrast enhancement is seen. Endoscopic sonographic evaluation could be considered. The largest of these measures 1.8 cm in greatest diameter. Electronically Signed by Cyrus Carvalho MD 04/14/2020 08:11 A
== END ==
LOC: M RAD 14:54
PROVIDERS: ATTEND Internal Medicine Medical Oncology
DX: C50.919 Malignant neoplasm of unspecified site of unspecified female breast (principal)
CPT/HCPCS: 74183; A9576

== ENCOUNTER → 2020-06-14 | Outpatient (CLI) | payer MEDICARE, MEDICAID ==
[~2020-06-14] MED LIST changes: -LEVO0.5S15 OP; +LEVO0.5S16 OP; -PANT20TA2 PO; +PANT20TA6 PO; +PANT40TA29 PO; -PANT40TA3 PO; -PROHANCE 279.3MG/ML 15ML VIAL As Ordered ONE; -VITA1CAP15 PO; +VITA400C83 PO
--- NOTE | 2020-08-06 16:31 | ECHO ---
DATE OF PROCEDURE: 06/14/2020 Height: 5 feet 3 inches Weight: 133 pounds REFERRING PHYSICIAN: Dr. Martha Torres INDICATION: Chemotherapy drugs that may affect the heart. MEASUREMENTS: 2D Measurements: Left atrium 2.8 cm Anterior septum 0.75 cm Posterior wall 0.71 cm Left ventricle diastole 3.9 cm Left ventricle systole 2.6 cm Aortic root 2.4 cm Proximal aorta 2.7 cm Inferior vena cava 1.6 cm (more than 50% respiratory variation) Doppler Measurements: Very mild aortic regurgitation No aortic stenosis Aortic valve velocity 178 cm/s Trace mitral regurgitation Mitral E velocity 138 cm/s Mitral A velocity 133 cm/s Mitral deceleration time 180 msec Trace tricuspid regurgitation No pulmonic regurgitation Pulmonary acceleration time 141 msec MITRAL ANNULAR TISSUE DOPPLER E prime lateral 9.3 cm/s, E prime septal 9.4 cm/s DESCRIPTION: Rhythm was sinus. Image quality was good. This was a 2D, M-mode, color flow Doppler, and pulsed wave Doppler examination including mitral annular tissue Doppler. CONCLUSIONS: * Normal left ventricle internal dimensions and wall thickness. Normal regional LV wall motion and wall thickening. Normal LV systolic function. LVEF 65% by visual estimate. Normal LV diastolic function. * Mild aortic valve sclerosis of a 3-cuspid aortic valve. Very mild aortic regurgitation. * Otherwise normal appearing echocardiogram Doppler findings. MTDD
== END ==
LOC: M CARPUL 08:30
PROVIDERS: ATTEND Internal Medicine Medical Oncology
DX: I08.2 Rheumatic disorders of both aortic and tricuspid valves (principal); C50.919 Malignant neoplasm of unspecified site of unspecified female breast

== ENCOUNTER → 2020-06-25 | Outpatient (CLI) | payer MEDICARE, MEDICAID | LOC: M LABSMTC 09:30 | PROVIDERS: ATTEND Internal Medicine Gastroenterology | DX: K86.2 Cyst of pancreas (principal); Z01.812 Encounter for preprocedural laboratory examination | CPT/HCPCS: C9803; U0003 ==

== ENCOUNTER → 2020-08-06 | Outpatient (CLI) | payer MEDICARE, MEDICAID ==
[~2020-08-06] MED LIST changes: +GASTROGRAFIN SOLUTION 30ML (Q9963) As Ordered ONE; +ISOVUE-370 76% 100ML VIAL As Ordered ONE
--- NOTE | 2020-08-11 15:18 | REP ---
CT ABDOMEN AND PELVIS WITH INTRAVENOUS (IV) AND ORAL CONTRAST: DUAL PHASE POST CONTRAST IMAGING HISTORY: Metastatic breast carcinoma. COMPARISON: CT studies of the abdomen from 11/21/2018 and 03/23/2020. CT CONTRAST DOSE: 100 mL of intravenous Isovue-370. CT FINDINGS: Preliminary digital tree scout radiograph demonstrates an unremarkable bowel gas pattern. The liver and the spleen are normal in size and homogeneous in texture. There is a tiny accessory splenule. The gallbladder is unremarkable. There are two cystic areas in the region of the head of the pancreas again noted unchanged from 03/23/2020. The larger of these measures 1.4 cm. No pancreatic mass lesion is seen. The gallbladder is unremarkable. No biliary ductal dilation is seen. Normal adrenal glands are observed bilaterally. There is a small cyst in the cortex of the upper pole of the right kidney again seen unchanged. No renal mass lesion is observed. A retroaortic left renal vein is observed. No periaortic mass or adenopathy is seen. The uterus is unremarkable. No ovarian mass or cyst is observed. No pelvic fluid or abdominal fluid collection is seen. Urinary bladder is unremarkable. Small and large intestinal bowel loops are normal in appearance. Bone window settings demonstrate degenerative disc changes and stable anterior wedge compression deformity at L1. No bony destructive lesion is appreciated. IMPRESSION: No evidence of mass or adenopathy. Pancreatic cyst unchanged from the most recent prior study of 03/23/2020. MTDD
--- NOTE | 2020-08-11 15:19 | REP ---
CT CHEST WITH INTRAVENOUS (IV) CONTRAST HISTORY: Metastatic breast carcinoma. CT CONTRAST DOSE: 100 mL of intravenous Isovue-370. COMPARISON: Chest CT study 03/23/2020 and 03/28/2019. CT FINDINGS: There is a right-sided Infusaport catheter. There is no evidence of pleural or pericardial effusion. No hilar or mediastinal mass or adenopathy is observed. There is some vascular calcification along the course of the left coronary artery as before. No other vascular abnormality is seen. No pulmonary nodule has developed. There is some mild bibasilar linear fibrosis. No mass or new infiltrate is seen. Bone window settings show degenerative changes in the thoracic spine. There is wedging in what appears to be the L1 vertebral body. This is unchanged from comparison CT study 01/16/2019. Degenerative disc changes are noted. No blastic or lytic lesion is seen. No adrenal lesion is observed. There is a tiny accessory splenule. No focal liver or splenic lesion is seen. The visualized upper abdominal structures are otherwise unremarkable. A small upper pole cyst is seen in the cortex of the right kidney unchanged. IMPRESSION: No acute disease. No evidence of mass, adenopathy, or recurrent pulmonary nodules. MTDD
== END ==
LOC: M RAD 12:25
PROVIDERS: ATTEND Internal Medicine Medical Oncology
DX: K86.2 Cyst of pancreas (principal); C50.919 Malignant neoplasm of unspecified site of unspecified female breast; Z95.9 Presence of cardiac and vascular implant and graft, unspecified
CPT/HCPCS: 71260; 74177; Q9963; Q9967

== ENCOUNTER → 2020-09-06 | Outpatient (CLI) | payer MEDICARE, MEDICAID ==
[~2020-09-06] MED LIST changes: -GASTROGRAFIN SOLUTION 30ML (Q9963) As Ordered ONE; -ISOVUE-370 76% 100ML VIAL As Ordered ONE
--- NOTE | 2020-09-07 13:42 | ECHO ---
DATE OF PROCEDURE: 09/06/2020 Age: 70 Gender: Female Height: 154 cm Weight: 62 kg REFERRING PHYSICIAN: Dr. Martha Torres INDICATION: Chemotherapy drugs that may affect the heart. MEASUREMENTS: 2D Measurements: Interventricular septum 0.64 cm Posterior wall 0.92 cm Left ventricle diastole 4.1 cm Aortic root 2.3 cm Left atrium 2.8 cm Left atrial volume index 14 cm Inferior vena cava 1.5 cm (more than 50% respiratory variation) Doppler Measurements: Very mild aortic regurgitation Aortic valve velocity 174 cm/s LVOT velocity 132 cm/s LVOT VTI 35.3 cm Very mild mitral regurgitation Mitral E velocity 124 cm/s Mitral A velocity 92.4 cm/s Mitral deceleration time 235 m/s No tricuspid regurgitation No pulmonic regurgitation Pulmonary artery acceleration time 151 m/s MITRAL ANNULAR TISSUE DOPPLER E prime septal 8.8 cm/s, E prime lateral 10.9 cm/s DESCRIPTION: Rhythm was sinus. Image quality was good. This was a 2D, M-mode, color flow Doppler, and pulsed wave Doppler examination including mitral annular tissue Doppler. CONCLUSIONS: 1. Normal left ventricle internal dimensions and wall thickness. Normal regional left ventricular (LV) wall motion and wall thickening. Normal left ventricular (LV) systolic function. Left ventricular ejection fraction (LVEF) 60% to 65% by visual estimate. Normal peak longitudinal strain pattern within the left ventricle. Normal left ventricular (LV) diastolic function. 2. No pericardial effusion. 3. Mild aortic valve sclerosis of a 3-cuspid aortic valve. Very mild aortic regurgitation. 4. Otherwise normal appearing echocardiogram Doppler findings. MTDD
== END ==
LOC: M CARPUL 09:57
PROVIDERS: ATTEND Internal Medicine Medical Oncology
DX: Z51.81 Encounter for therapeutic drug level monitoring (principal); C50.912 Malignant neoplasm of unspecified site of left female breast; Z79.899 Other long term (current) drug therapy; I35.1 Nonrheumatic aortic (valve) insufficiency

== ENCOUNTER → 2020-10-08 | Outpatient (CLI) | payer MEDICARE, MEDICAID | LOC: M LABSMTC 09:40 | PROVIDERS: ATTEND Internal Medicine Gastroenterology | DX: Z01.812 Encounter for preprocedural laboratory examination (principal); Z20.828 Contact with and (suspected) exposure to other viral communicable diseases; Z12.11 Encounter for screening for malignant neoplasm of colon ==

== ENCOUNTER → 2020-11-30 | Outpatient (CLI) | payer MEDICARE, MEDICAID ==
[~2020-11-30] MED LIST changes: +D31000TA2 PO
--- NOTE | 2020-12-06 10:25 | ECHO ---
DATE OF PROCEDURE: 11/30/2020 Age: 64 Gender: Female Height: 155 cm Weight: 62 kg REFERRING PHYSICIAN: Martha Torres M.D. INDICATION: Chemotherapy drugs that may effect the heart. MEASUREMENTS: 2D Measurements: Intraventricular septum 0.85 cm Posterior wall 0.73 cm Left ventricle diastole 4.0 cm Aortic root 2.4 cm Left atrium 3.2 cm Left atrial volume index 18 cm Inferior vena cava 1.7 cm with more than 50% respiratory variation Doppler Measurements: Mild aortic regurgitation No aortic stenosis Aortic valve velocity 141 cm/s LVOT velocity 106 cm/s LVOT VTI 26.6 cm Very mild mitral regurgitation Mitral E velocity 98.7 cm/s Mitral A velocity 107 cm/s Mitral deceleration time 225 msec No tricuspid regurgitation Very mild pulmonic regurgitation Pulmonary artery acceleration time 215 msec MITRAL ANNULAR TISSUE DOPPLER E prime septal 8.2 cm/s, E prime lateral 9.3 cm/s DESCRIPTION: Rhythm was sinus. Image quality was fair. This was a 2D, M-mode, color flow Doppler, and pulsed wave Doppler examination including mitral annular tissue Doppler. CONCLUSIONS: 1. Normal left ventricle internal dimensions and wall thickness. Normal regional LV wall motion and wall thickening. Normal LV systolic function. LVEF 70% by visual estimate. Normal LV diastolic function for age. Normal left atrial volume index. 2. Mild aortic valve sclerosis of a 3-cuspid aortic valve. Mild aortic regurgitation. 3. Mild mitral annular calcification. Very mild mitral regurgitation. 4. Suggestive of pulmonary artery systolic pressure not elevated. Normal right ventricle size and systolic function. Normal right atrial size. 5. Very small pericardial effusion seen over the posterior wall of the left ventricle. No diastolic chamber collapse. 6. Otherwise normal appearing echocardiogram Doppler findings. MTDD
== END ==
LOC: M CARPUL 10:13
PROVIDERS: ATTEND Internal Medicine Medical Oncology
DX: C50.919 Malignant neoplasm of unspecified site of unspecified female breast (principal); I31.3 Pericardial effusion (noninflammatory)

== ENCOUNTER → 2021-01-04 | Outpatient (CLI) | payer MEDICARE, MEDICAID ==
[~2021-01-04] MED LIST changes: +GASTROGRAFIN SOLUTION 30ML (Q9963) As Ordered ONE; +ISOVUE-370 76% 100ML VIAL As Ordered ONE; +LISI10TA22 PO; -LISI10TA4 PO
--- NOTE | 2021-01-04 10:32 | REP ---
INDICATION: BREAST CA COMPARISON: 08/06/2020, 03/28/2019 TECHNIQUE: Axial contrast enhanced images from the thoracic inlet to the upper abdomen using 100 ml Isovue 370 intravenous contrast material followed by CT of the abdomen and pelvis. Coronal and sagittal reformations obtained. This CT examination was performed using the following dose reduction techniques: Automated exposure control, adjustment of mA and/or kv according to the patient's size, and use of iterative reconstruction technique. FINDINGS: The bilateral lung real are well aerated and essentially clear. Minimal scattered scarring and trace right basilar dependent atelectasis is appreciated. No acute consolidation, significant nodule, or mass lesion. No effusion. No pneumothorax. Tracheobronchial tree is patent. No axillary, hilar, or mediastinal adenopathy. Stable atherosclerotic changes to the thoracic aorta and coronary arteries noted without aortic aneurysm or cardiomegaly. No pericardial effusion. [id number]-[id number] identified with tip in the SVC. Osseous structures demonstrate stable presumed degenerative changes without evidence for new lytic, sclerotic, or blastic lesions. IMPRESSION: 1. Minimal stable appearing chronic changes. 2. No evidence for acute mediastinal/pleuroparenchymal process or metastatic disease. <Electronically signed by Kem Fofana > 01/04/21 [id number]
--- NOTE | 2021-01-04 10:36 | REP ---
INDICATION: BREAST CA. COMPARISON: 08/06/2020, 11/21/2018 TECHNIQUE: Axial contrast-enhanced images from the lung bases to the pubic symphysis using oral and 100 cc Isovue 370 intravenous contrast material. Delayed images of the abdomen obtained along with coronal and sagittal reformations. This CT examination was performed using the following dose reduction techniques: Automated exposure control, adjustment of mA and/or kv according to the patient's size, and the use of iterative reconstruction technique. FINDINGS: Liver, spleen, pancreas, gallbladder, bilateral adrenal glands and kidneys are stable and essentially normal. Few small renal hypodensities again noted and consistent with cysts measuring up to 11 mm in the right kidney. The stomach appears somewhat distended although no obvious gastric abnormalities appreciated. There is no evidence for bowel obstruction or acute inflammatory process. Normal terminal ileum and appendix are identified in the right lower quadrant. Few scattered sigmoid diverticula noted without acute diverticulitis. Pelvis demonstrates normal bladder and age-appropriate uterus/adnexa although subtle myomatous changes cannot be excluded. No ascites. No free air. No intraperitoneal or retroperitoneal adenopathy. Atherosclerotic changes to the aorta and vasculature noted without aneurysm or dissection. Musculoskeletal structures demonstrate presumed degenerative changes similar to prior examination along with chronic moderate compression deformity at L1. IMPRESSION: 1. No evidence for acute abdominopelvic pathology appreciated. 2. Chronic stable changes as described above. <Electronically signed by Kem Fofana > 01/04/21 [id number]
== END ==
LOC: M RAD 08:12
PROVIDERS: ATTEND Internal Medicine Medical Oncology
DX: C50.919 Malignant neoplasm of unspecified site of unspecified female breast (principal)
CPT/HCPCS: 71260; 74177; Q9963; Q9967

== ENCOUNTER → 2021-03-30 | Outpatient (CLI) | payer MEDICARE, MEDICAID ==
[~2021-03-30] MED LIST changes: +COVI30VI IM; -GASTROGRAFIN SOLUTION 30ML (Q9963) As Ordered ONE; -ISOVUE-370 76% 100ML VIAL As Ordered ONE; +NORT10CA2 PO
--- NOTE | 2021-03-31 14:11 | ECHO ---
ECHOCARDIOGRAM DATE OF PROCEDURE: 03/30/2021 Age: 65 Gender: Female Height: 155 cm Weight: 62 kg Body Surface Area: 1.61 m2 PATIENT LOCATION: Outpatient. REFERRING PHYSICIAN: Dr. Martha Torres. INDICATION: Malignant neoplasm potentially cardiotoxic chemotherapy. MEASUREMENTS: 2D Measurements: RV 3.1 cm LV 4.0 cm Septum 0.8 cm Posterior wall 0.8 cm Aortic Root 2.9 cm LA 3.0 cm LVEF 75% Doppler Measurements: AV 1.8 m/s LVOT 1.15 m/s LVOT diameter 1.7 cm MV-E 107, A 107, EA ratio 1 Early mitral deceleration time 185 msec E prime medial 7.2, A prime medial 12, E prime lateral 8.2 Average E/E prime ratio 13.9/PCWP 19 mmHg PV 0.95 m/s Pulmonary artery acceleration time 120 msec PASP 28 mmHg IVC - 1.1 cm COMMENTS: Normal sinus rhythm without intraventricular conduction disturbance. M-mode and 2-dimensional echocardiography was performed with pulse, continuous wave, color flow, tissue Doppler, and strain imaging. Normal left ventricular size, wall thickness, and hyperkinetic wall motion. Normal left atrial size and Doppler assessment of LV diastolic function with current estimated mean left atrial pressure upper limits of normal. Normal right heart chamber sizes and motion and estimated pulmonary arterial pressure. Slightly reduced IVC size with ample respiratory collapse against an elevated central venous pressure. Normal aortic dimensions. Mild aortic valvular sclerosis with adequate cusp separation and very mild insufficiency. Mild degenerative changes of the mitral valvular apparatus without inflow tract obstruction and only very mild insufficiency. Normal appearing tricuspid valve with very mild insufficiency. Miniscule (physiologic) pericardial fluid. No apparent intracardiac mass. MTDD
== END ==
LOC: M CARPUL 07:36
PROVIDERS: ATTEND Internal Medicine Medical Oncology
DX: C50.919 Malignant neoplasm of unspecified site of unspecified female breast (principal); I35.1 Nonrheumatic aortic (valve) insufficiency

== ENCOUNTER → 2021-07-18 | Outpatient (CLI) | payer MEDICARE, MEDICAID ==
[~2021-07-18] MED LIST changes: +GASTROGRAFIN SOLUTION 30ML (Q9963) As Ordered ONE; +ISOVUE-370 76% 100ML VIAL As Ordered ONE
--- NOTE | 2021-07-18 13:46 | REP ---
INDICATION: MET BREAST CA F/U COMPARISON: Multiple the latest 01/04/2021 TECHNIQUE: Standard helical technique after the intravenous administration of 100 cc Isovue 370 FINDINGS: Since the last examination a prominent left axillary lymph node has developed, however, it retains its fatty hilum. No mediastinal or hilar adenopathy has developed. There are no pleural or pericardial effusions. Evaluation of the osseous structures shows a stable L1 compression fracture and spinal degenerative changes. Evaluation of the lung real shows no new abnormal nodules, masses, or opacities. IMPRESSION: The only change which has occurred since the last examination is a prominent left axillary lymph node which retains its fatty hilum. <Electronically signed by Dieudonne Aleman > 07/18/21 [id number]
--- NOTE | 2021-07-18 16:20 | REP ---
INDICATION: MET BREAST CA F/U. COMPARISON: Multiple the latest 01/04/2021 TECHNIQUE: Standard helical technique after the intravenous administration of 100 cc Isovue 370 and oral bowel preparatory contrast administration FINDINGS: The liver, gallbladder, spleen, pancreas, adrenal glands, and kidneys are unchanged. There is a stable cyst in the pancreatic neck. There are stable bilateral tiny renal cortical cysts. The abdominal aorta and para-aortic regions are unchanged and again seen to be within normal limits. There is no significant change in appearance of the bowel loops or the mesenteries. There is no mass or adenopathy. There is no free fluid or free air. Bone window technique throughout the examination shows no significant change in appearance of the osseous structures. Chronic spinal changes are noted status quo. IMPRESSION: No significant change compared to the prior exam with findings as described above. <Electronically signed by Dieudonne Aleman > 07/18/21 [id number]
== END ==
LOC: M RAD 11:07
PROVIDERS: ATTEND Internal Medicine Medical Oncology
DX: C50.912 Malignant neoplasm of unspecified site of left female breast (principal)
CPT/HCPCS: 71260; 74177; Q9963; Q9967

== ENCOUNTER → 2021-08-01 | Outpatient (CLI) | payer MEDICARE, MEDICAID ==
[~2021-08-01] MED LIST changes: -GASTROGRAFIN SOLUTION 30ML (Q9963) As Ordered ONE; -ISOVUE-370 76% 100ML VIAL As Ordered ONE; +VITA-259 PO
--- NOTE | 2021-08-01 10:41 | REP ---
INDICATION: LT AXILLARY LYNPHNODE ENLARGMENT / H/O BREAST CA COMPARISON: Chest CT dated 07/18/2021 TECHNIQUE: Limited real-time grayscale and color Doppler evaluation of the left axilla using linear high-frequency transducer. FINDINGS: Few nonspecific left axillary lymph nodes are identified measuring up to 19 x 11 x 15 and 22 x 8 x 9 mm. IMPRESSION: 1. Few nonspecific left axillary lymph nodes noted. <Electronically signed by Kem Fofana > 08/01/21 [id number]
== END ==
LOC: M RAD 09:42
PROVIDERS: ATTEND Internal Medicine Medical Oncology
DX: R22.2 Localized swelling, mass and lump, trunk (principal)

== ENCOUNTER → 2021-08-22 | Outpatient (CLI) | payer MEDICARE, MEDICAID ==
[~2021-08-22] MED LIST changes: +LIDOCAINE 1% MDV 20ML VIAL As Ordered ONE; +SERT-141 PO
[2021-08-22 09:36] VITALS: BP 134/63
[2021-08-22 10:19] LABS: HEMATOCRIT 37.1 % (36.0-47.0); MEAN CORPUSCULAR HEMOGLOBIN 29.7 pg (27.0-33.0); MEAN CORPUSCULAR HGB CONC 32.3 g/dl (32.0-36.5); MEAN CORPUSCULAR VOLUME 91.8 fl (80.0-96.0); PLATELET COUNT, AUTOMATED 254 10^3/uL (150-450); RED BLOOD COUNT 4.04 10^6/uL (4.00-5.40); WHITE BLOOD COUNT 7.5 10^3/uL (4.0-10.0)
[2021-08-22 10:29] LABS: INR 0.9; PROTHROMBIN TIME 12.5 SECONDS (12.7-14.5)
[2021-08-22 10:30] LABS: PARTIAL THROMBOPLASTIN TIME 32.6 SECONDS (25.9-37.0)
--- NOTE | 2021-08-22 19:01 | REP ---
INDICATION: METASTATIC BREAST CA. COMPARISON: None. TECHNIQUE: The procedure was performed by DOMI Dozier, under the direct supervision of Dr. Clayton. The risks and benefits of the procedure were explained to the patient and an informed consent was obtained both verbally and written. Directly prior to the start of the procedure a formal time-out was completed in the procedure room. The left axillary lymph node was localized using ultrasound guidance. The skin was prepped and draped in a sterile fashion. Twenty mL of 1% lidocaine was used as a local anesthetic. Using ultrasound guidance 6 core biopsy specimens were obtained using an 18 gauge Temno biopsy needle. Four specimens were placed in formalin. Two specimens were placed in flow cytometry tubing. The patient tolerated the procedure well and there were no immediate complications. After the appropriate amount of monitored convalescence the patient was discharged from the department. FINDINGS: Six core biopsy specimens were obtained using an 18 gauge Temno biopsy needle. Four of the specimens were placed in formalin. Two specimens were placed in flow cytometry tubing. The specimens were sent to the lab for further evaluation. IMPRESSION: Successful ultrasound-guided left axillary lymph node biopsy yielding 6 core specimens. These specimens were sent to the lab for further evaluation. <Electronically signed by Becca Greene > 08/22/21 [id number] <Electronically signed by Rodrigo Clayton > 08/22/21 [id number]
== END ==
LOC: M IRPRO 08:00
PROVIDERS: ATTEND Internal Medicine Medical Oncology
DX: C77.3 Secondary and unspecified malignant neoplasm of axilla and upper limb lymph nodes (principal); C50.919 Malignant neoplasm of unspecified site of unspecified female breast

== ENCOUNTER → 2021-09-19 | Outpatient (CLI) | payer MEDICARE, MEDICAID ==
[~2021-09-19] MED LIST changes: -LIDOCAINE 1% MDV 20ML VIAL As Ordered ONE
--- NOTE | 2021-09-20 09:24 | REP ---
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 COMPARISON: PET-CT of 08/26/2019, CT chest abdomen pelvis 07/18/2021 TECHNIQUE: After the intravenous administration of 8.80 mCi of FDG 18 triplane whole-body PET-CT was performed from the skull base to the mid thigh. FINDINGS: There is a hypermetabolic left axillary lymph node which measures approximately 1.7 cm. This has a maximal SUV value of 5.98. Inferior and medial to this in the left axilla there is an additional hypermetabolic nodule having an SUV value of 3.08 maximally. This measures approximately 1.1 cm. There is a focus of hypermetabolism seen in the left breast with a maximal SUV value of 2.79. There is diffuse extensive skeletal muscle hypermetabolism secondary to improper post injection resting and to such a degree that the sensitivity of this examination could be decreased. This skeletal muscle has SUV values up to 7.82 maximally seen mostly in the erector spine a musculature. The skeletal muscle hypermetabolism could obscure a hypermetabolic bone lesion. No other areas of abnormal hypermetabolic activity are seen in the neck, chest, abdomen, or pelvis. IMPRESSION: 1. Left breast hypermetabolic activity which needs to be correlated clinically. New or recurrent malignancy cannot be ruled out. 2. Hypermetabolic left axillary lymph nodes. New or recurrent malignancy cannot be ruled out. 3. Other findings and exam limitations as described above. Consider conventional bone scintigraphy. <Electronically signed by Dieudonne Aleman > 09/20/21 [id number]
== END ==
LOC: M PLARAD 08:01
PROVIDERS: ATTEND Internal Medicine Medical Oncology
DX: C34.82 Malignant neoplasm of overlapping sites of left bronchus and lung (principal)
CPT/HCPCS: 78815; A9552

== ENCOUNTER → 2021-10-06 | Outpatient (CLI) | payer MEDICARE, MEDICAID ==
--- NOTE | 2021-10-06 16:30 | ECHO ---
ECHOCARDIOGRAM DATE OF PROCEDURE: 10/06/2021 Age: Gender: Height: 155 cm Weight: 63 kg REFERRING PHYSICIAN: Dr. Martha Torres INDICATION: Chemotherapy drugs that may affect the heart. 2D MEASUREMENTS: Ventricular septum 0.80 cm Posterior wall 0.79 cm Left ventricle diastole 3.7 cm Left ventricle systole 2.5 cm Aortic root 2.7 cm Left atrium 2.9 cm Left atrial volume index 19 Proximal ascending aorta 2.9 cm DOPPLER MEASUREMENTS: Very mild aortic regurgitation. No aortic stenosis. Aortic valve velocity 156 cm/s LVOT velocity 111 cm/s LVOT VTI 24.6 cm No mitral regurgitation. Mitral E velocity 111 cm/s Mitral A velocity 105 cm/s Mitral deceleration time 197 msec No tricuspid regurgitation. No pulmonic regurgitation. MITRAL ANNULAR TISSUE DOPPLER: E prime septal 10.3 cm/s DESCRIPTION: Rhythm was sinus. Image quality was fair. This was 2D, M mode, color flow Doppler, and pulse wave Doppler examination and included mitral annular tissue Doppler. CONCLUSIONS: 1. Normal ventricle internal dimensions and wall thickness. Normal regional LV wall motion and wall thickening. Normal LV systolic function. LVEF 70% by visual estimate. Normal LV diastolic function. 2. No pericardial effusion. 3. Very mild aortic valve sclerosis of a 3-cuspid aortic valve. Very mild aortic regurgitation. 4. Mild mitral annular calcification. No mitral regurgitation. 5. Otherwise normal-appearing echocardiogram Doppler findings.
== END ==
LOC: M CARPUL 11:33
PROVIDERS: ATTEND Internal Medicine Medical Oncology
DX: I08.0 Rheumatic disorders of both mitral and aortic valves (principal); C50.912 Malignant neoplasm of unspecified site of left female breast; Z79.899 Other long term (current) drug therapy

== ENCOUNTER → 2021-12-09 | Outpatient (CLI) | payer MEDICARE, MEDICAID ==
[~2021-12-09] MED LIST changes: -DORZ2SOL4; +DORZ2SOL4 OS; -MOME50SP NARES; +NASO50SP3 NARES; +ONDA-84 PO; +PROC10TA5 PO; +SUCR1ORA2 PO; -TIMO0.5S29; +TIMO0.5S29 OS
== END ==
LOC: M RAD 10:07
PROVIDERS: ATTEND Internal Medicine Medical Oncology
DX: R93.7 Abnormal findings on diagnostic imaging of other parts of musculoskeletal system (principal); C50.912 Malignant neoplasm of unspecified site of left female breast; M85.80 Other specified disorders of bone density and structure, unspecified site
CPT/HCPCS: 78306; A9503

== ENCOUNTER → 2022-01-02 | Outpatient (CLI) | payer MEDICARE, MEDICAID ==
[~2022-01-02] MED LIST changes: -D31000TA2 PO; +VITA100093 PO
== END ==
LOC: M PLARAD 10:26
PROVIDERS: ATTEND Internal Medicine Medical Oncology
DX: C50.812 Malignant neoplasm of overlapping sites of left female breast (principal)
CPT/HCPCS: 78815; A9552

== ENCOUNTER → 2022-01-06 | Outpatient (CLI) | payer MEDICARE, MEDICAID ==
[~2022-01-06] MED LIST changes: +MAGN500T12 PO; +MOME50SP2 NARES
== END ==
LOC: M CARPUL 09:54
PROVIDERS: ATTEND Internal Medicine Medical Oncology
DX: C50.912 Malignant neoplasm of unspecified site of left female breast (principal); I35.8 Other nonrheumatic aortic valve disorders

== ENCOUNTER 2022-01-16 23:17 | Emergency (ER) | payer MEDICARE, MEDICAID ==
[~2022-01-16] VITALS: Ht 157.5 cm; Wt 63.6 kg
[~2022-01-16 23:17] MED LIST changes: -ONDA4TAB6 PO; -PROHANCE 279.3MG/ML 5ML VIAL ONE
[2022-01-16] MEDS ORDERED: NS 1,000 ML IV SCH (23:35)
[2022-01-16] MEDS ORDERED: ONDANSETRON 4MG/2ML VIAL IV ONE (23:35)
[2022-01-17 00:22] LABS: BASO % 0.1 % (0.0-1.0); EOS # 0.1 10^3/uL (0.0-0.5); EOS % 0.5 % (0.0-3.0); HEMATOCRIT 37.5 % (36.0-47.0); HEMOGLOBIN 12.5 g/dl (12.0-15.5); LYMPH # 0.9 10^3/uL (1.5-5.0); LYMPH % 6.5 % (24.0-44.0); MEAN CORPUSCULAR HEMOGLOBIN 28.8 pg (27.0-33.0); MEAN CORPUSCULAR HGB CONC 33.3 g/dl (32.0-36.5); MEAN CORPUSCULAR VOLUME 86.4 fl (80.0-96.0); MONO # 1.5 10^3/uL (0.0-0.8); MONO % 10.4 % (2.0-8.0); NEUTROPHILS # 11.7 10^3/uL (1.5-8.5); PLATELET COUNT, AUTOMATED 165 10^3/uL (150-450); RED BLOOD COUNT 4.34 10^6/uL (4.00-5.40); WHITE BLOOD COUNT 14.2 10^3/uL (4.0-10.0)
[2022-01-17 00:51] LABS: ALBUMIN 3.7 GM/DL (3.2-5.2); ALT/SGPT 47 U/L (12-78); BILIRUBIN,DIRECT < 0.1 MG/DL (0.0-0.2); BILIRUBIN,TOTAL 0.5 MG/DL (0.2-1.0); BLOOD UREA NITROGEN 17 MG/DL (7-18); CALCIUM LEVEL 9.4 MG/DL (8.8-10.2); CARBON DIOXIDE LEVEL 28 MEQ/L (21-32); CHLORIDE LEVEL 106 MEQ/L (98-107); CREATININE FOR GFR 0.96 MG/DL (0.55-1.30); GLOMERULAR FILTRATION RATE > 60.0 (>45); GLUCOSE, FASTING 108 MG/DL (70-100); LIPASE 145 U/L (73-393); POTASSIUM SERUM 3.8 MEQ/L (3.5-5.1); SODIUM LEVEL 141 MEQ/L (136-145); TOTAL PROTEIN 7.2 GM/DL (6.4-8.2)
[2022-01-17] MEDS ORDERED: MORPHINE 4 MG/ML 1ML VIAL/SYRINGE (J2270) IV ONE (03:10)
[2022-01-17] MEDS ORDERED: ONDA4TAB6 PO (05:22)
[2022-01-17 05:30] VITALS: BP 109/50
== END 2022-01-17 05:45 | disposition home or self-care (01) ==
LOC: EDBD 23:17 → M ED 23:17
DX: R10.9 Unspecified abdominal pain (principal); R11.10 Vomiting, unspecified; E11.9 Type 2 diabetes mellitus without complications; F32.A Depression, unspecified; C50.919 Malignant neoplasm of unspecified site of unspecified female breast; Z88.2 Allergy status to sulfonamides; Z79.4 Long term (current) use of insulin; Z79.899 Other long term (current) drug therapy
CPT/HCPCS: 74176; 76856; 80048; 80076; 83690; 85025; 93041; 93976; 96361; 96374; 96375; 99285; J2270; J2405

== ENCOUNTER → 2022-01-16 | Outpatient (CLI) | payer MEDICARE, MEDICAID ==
[~2022-01-16] MED LIST changes: +ONDA4TAB6 PO; +PROHANCE 279.3MG/ML 5ML VIAL ONE
== END ==
LOC: M PLAIMG 08:43
PROVIDERS: ATTEND Internal Medicine Medical Oncology
DX: C50.919 Malignant neoplasm of unspecified site of unspecified female breast (principal)
CPT/HCPCS: 72157; 72158; A9576

== ENCOUNTER → 2022-04-20 | Outpatient (CLI) | payer MEDICARE, MEDICAID ==
[~2022-04-20] MED LIST changes: +CRES5TAB PO; +MM S100C PO; +OMEP1CAP73 PO; +ONDA4TAB6 PO; +PROHANCE 279.3MG/ML 5ML VIAL As Ordered ONE
== END ==
LOC: M RAD 10:26
PROVIDERS: ATTEND Internal Medicine Medical Oncology
DX: C50.912 Malignant neoplasm of unspecified site of left female breast (principal)
CPT/HCPCS: 72157; A9576

== ENCOUNTER → 2022-04-28 | Outpatient (CLI) | payer MEDICARE, MEDICAID ==
[~2022-04-28] MED LIST changes: +PROHANCE 279.3MG/ML 15ML VIAL ONE; -PROHANCE 279.3MG/ML 5ML VIAL As Ordered ONE
== END ==
LOC: M PLAIMG 10:19
PROVIDERS: ATTEND Internal Medicine Medical Oncology
DX: R42 Dizziness and giddiness (principal); C50.919 Malignant neoplasm of unspecified site of unspecified female breast
CPT/HCPCS: 70553; A9576

== ENCOUNTER → 2022-05-02 | Outpatient (CLI) | payer MEDICARE, MEDICAID ==
[~2022-05-02] MED LIST changes: -PROHANCE 279.3MG/ML 15ML VIAL ONE
== END ==
LOC: M CARPUL 04-13 10:08
PROVIDERS: ATTEND Internal Medicine Medical Oncology
DX: I42.7 Cardiomyopathy due to drug and external agent (principal)

== ENCOUNTER → 2022-08-01 | Outpatient (CLI) | payer MEDICARE, MEDICAID ==
[~2022-08-01] MED LIST changes: +CEPH500C PO
== END ==
LOC: M CARPUL 09:35
PROVIDERS: ATTEND Internal Medicine
DX: I42.7 Cardiomyopathy due to drug and external agent (principal); I08.0 Rheumatic disorders of both mitral and aortic valves

== ENCOUNTER → 2022-08-07 | Outpatient (CLI) | payer MEDICARE, MEDICAID ==
[~2022-08-07] MED LIST changes: -CEPH500C PO
== END ==
LOC: M PLARAD 09:02
PROVIDERS: ATTEND Internal Medicine Medical Oncology
DX: C50.812 Malignant neoplasm of overlapping sites of left female breast (principal)
CPT/HCPCS: 78815; A9552

== ENCOUNTER → 2022-09-05 | Outpatient (CLI) | payer MEDICARE, MEDICAID ==
[~2022-09-05] MED LIST changes: +CEPH500C PO
== END ==
LOC: M RAD 09:32
PROVIDERS: ATTEND Internal Medicine
DX: M79.604 Pain in right leg (principal)

== ENCOUNTER → 2022-10-31 | Outpatient (CLI) | payer MEDICARE, MEDICAID | LOC: M CARPUL 09:57 | PROVIDERS: ATTEND Specialist | DX: I42.7 Cardiomyopathy due to drug and external agent (principal); C50.919 Malignant neoplasm of unspecified site of unspecified female breast ==

== ENCOUNTER → 2022-12-07 | Outpatient (CLI) | payer MEDICARE, MEDICAID ==
[2022-12-07 11:42] LABS: BASO % 0.6 % (0.0-1.0); EOS # 0.3 10^3/uL (0.0-0.5); EOS % 5.2 % (0.0-3.0); HEMATOCRIT 37.7 % (36.0-47.0); HEMOGLOBIN 12.3 g/dl (12.0-15.5); LYMPH # 1.4 10^3/uL (1.5-5.0); LYMPH % 26.8 % (24.0-44.0); MEAN CORPUSCULAR HEMOGLOBIN 28.7 pg (27.0-33.0); MEAN CORPUSCULAR HGB CONC 32.6 g/dl (32.0-36.5); MEAN CORPUSCULAR VOLUME 87.9 fl (80.0-96.0); MONO # 0.6 10^3/uL (0.0-0.8); MONO % 10.6 % (2.0-8.0); NEUTROPHILS % 56.4 % (36.0-66.0); RED BLOOD COUNT 4.29 10^6/uL (4.00-5.40); WHITE BLOOD COUNT 5.4 10^3/uL (4.0-10.0)
[2022-12-07 11:57] LABS: PLATELET COUNT, AUTOMATED 92 10^3/uL (150-450)
[2022-12-07 12:15] LABS: RHEUMATOID FACTOR QUANT 7.5 IU/ML (<14)
[2022-12-07 12:19] LABS: ALBUMIN 3.2 G/DL (3.2-5.2); ALKALINE PHOSPHATASE 119 U/L (46-116); ALT/SGPT 45 U/L (7.0-40); AST/SGOT 73 U/L (<34); BLOOD UREA NITROGEN 21 MG/DL (9-23); CALCIUM LEVEL 9.9 MG/DL (8.3-10.6); CARBON DIOXIDE LEVEL 30 MMOL/L (20-31); CHLORIDE LEVEL 102 MMOL/L (98-107); CREATININE FOR GFR 0.94 MG/DL (0.55-1.30); FOLATE > 24.0 NG/ML (>5.4); FREE T4 0.89 NG/DL (0.89-1.76); GLOMERULAR FILTRATION RATE > 60.0 (>45); GLUCOSE, FASTING 256 MG/DL (74-106); POTASSIUM SERUM 3.8 MMOL/L (3.5-5.1); SODIUM LEVEL 137 MMOL/L (136-145); THYROID STIMULATING HORMONE 3.189 uIU/ML (0.55-4.78); TOTAL PROTEIN 6.7 G/DL (5.7-8.2); VITAMIN B12 LEVEL 1263 PG/ML (211-911)
[2022-12-07 13:04] LABS: ERYTHROCYTE SEDIMENTATION RATE 44 mm/hr (0-30)
== END ==
LOC: M LAB 11:04
PROVIDERS: ATTEND Psychiatry & Neurology Neurology
DX: D51.9 Vitamin B12 deficiency anemia, unspecified (principal); E07.9 Disorder of thyroid, unspecified; Z91.81 History of falling

== ENCOUNTER → 2022-12-14 | Outpatient (CLI) | payer MEDICARE, MEDICAID ==
[~2022-12-14] MED LIST changes: +GASTROGRAFIN SOLUTION 30ML As Ordered ONE; +ISOVUE-370 76% 100ML VIAL As Ordered ONE; +LISI20TA33 PO
== END ==
LOC: M RAD 08:05
PROVIDERS: ATTEND Internal Medicine Medical Oncology
DX: C50.919 Malignant neoplasm of unspecified site of unspecified female breast (principal); K76.0 Fatty (change of) liver, not elsewhere classified; K86.2 Cyst of pancreas; N28.89 Other specified disorders of kidney and ureter; M85.80 Other specified disorders of bone density and structure, unspecified site; K42.9 Umbilical hernia without obstruction or gangrene; M47.9 Spondylosis, unspecified; M41.9 Scoliosis, unspecified; R91.8 Other nonspecific abnormal finding of lung field
CPT/HCPCS: 71260; 74177; Q9963; Q9967

== ENCOUNTER → 2023-01-23 | Outpatient (REF) | payer MEDICARE ==
[~2023-01-23] MED LIST changes: -GASTROGRAFIN SOLUTION 30ML As Ordered ONE; -ISOVUE-370 76% 100ML VIAL As Ordered ONE; +LEVO1TAB39 PO; +PRED20TA PO
== END ==
LOC: M SFHCWAGY 13:09
PROVIDERS: ATTEND Advanced Practice Midwife
DX: Z12.4 Encounter for screening for malignant neoplasm of cervix (principal); N95.8 Other specified menopausal and perimenopausal disorders
CPT/HCPCS: 87624; G0123

== ENCOUNTER → 2023-02-12 | Outpatient (CLI) | payer MEDICARE, MEDICAID ==
[~2023-02-12] MED LIST changes: +TIMO0.5S20 OS; -TIMO0.5S29 OS
== END ==
LOC: M CARPUL 09:59
PROVIDERS: ATTEND Internal Medicine Medical Oncology
DX: I42.7 Cardiomyopathy due to drug and external agent (principal)

== ENCOUNTER → 2023-03-14 | Outpatient (CLI) | payer MEDICARE, MEDICAID ==
[~2023-03-14] MED LIST changes: +CINN1CAP6 PO; +GASTROGRAFIN SOLUTION 30ML As Ordered ONE; +ISOVUE-370 76% 100ML VIAL As Ordered ONE; +OXYC1TAB23 PO
== END ==
LOC: M RAD 08:40
PROVIDERS: ATTEND Internal Medicine Medical Oncology
DX: C50.919 Malignant neoplasm of unspecified site of unspecified female breast (principal)
CPT/HCPCS: 71260; 74177; Q9963; Q9967

== ENCOUNTER 2023-03-18 10:08 | Inpatient (IN) | payer MEDICARE, MEDICAID ==
[~2023-03-18] VITALS: Ht 154.9 cm; Wt 60.1 kg
[~2023-03-18 10:08] MED LIST changes: -GASTROGRAFIN SOLUTION 30ML As Ordered ONE; -INSUHUMDS; +INSUHUMDS SC; -INSULANT; +INSULANT SC; -ISOVUE-370 76% 100ML VIAL As Ordered ONE
[2023-03-18] MEDS ORDERED: ACETAMINOPHEN TAB 650MG DOSE (2X325MG) PO ONE (10:35)
[2023-03-18] MEDS ORDERED: NS 1,000 ML IV ONE (10:40)
[2023-03-18 10:49] LABS: BASO % 0.2 % (0.0-1.0); EOS % 0.2 % (0.0-3.0); HEMATOCRIT 36.4 % (36.0-47.0); HEMOGLOBIN 12.2 g/dl (12.0-15.5); LYMPH # 0.7 10^3/uL (1.5-5.0); LYMPH % 5.6 % (24.0-44.0); MEAN CORPUSCULAR HGB CONC 33.5 g/dl (32.0-36.5); MEAN CORPUSCULAR VOLUME 89.7 fl (80.0-96.0); MONO # 0.9 10^3/uL (0.0-0.8); MONO % 6.8 % (2.0-8.0); NEUTROPHILS # 11.4 10^3/uL (1.5-8.5); NEUTROPHILS % 86.8 % (36.0-66.0); PLATELET COUNT, AUTOMATED 170 10^3/uL (150-450); RED BLOOD COUNT 4.06 10^6/uL (4.00-5.40); WHITE BLOOD COUNT 13.1 10^3/uL (4.0-10.0)
[2023-03-18 11:18] LABS: BLOOD UREA NITROGEN 20 MG/DL (9-23); CALCIUM LEVEL 9.7 MG/DL (8.3-10.6); CARBON DIOXIDE LEVEL 29 MMOL/L (20-31); CHLORIDE LEVEL 101 MMOL/L (98-107); CREATININE FOR GFR 0.81 MG/DL (0.55-1.30); GLOMERULAR FILTRATION RATE > 60.0 (>45); GLUCOSE, FASTING 442 MG/DL (74-106); SODIUM LEVEL 136 MMOL/L (136-145)
[2023-03-18 13:29] LABS: APPEARANCE, URINE HAZY (CLEAR); BACTERIA, URINE AUTO NEGATIVE (NEGATIVE); BILIRUBIN, URINE AUTO NEGATIVE (NEGATIVE); BLOOD, URINE BLOOD NEGATIVE (NEGATIVE); COLOR, URINE YELLOW (YELLOW); GLUCOSE, URINE (UA) AUTO 3+ mg/dL (NEGATIVE); KETONE, URINE AUTO TRACE mg/dL (NEGATIVE); LEUKOCYTE ESTERASE, URINE AUTO NEGATIVE (NEGATIVE); MUCUS, URINE SMALL (NEGATIVE); NITRITE, URINE AUTO NEGATIVE (NEGATIVE); PROTEIN, URINE AUTO NEGATIVE (NEGATIVE); RBC, URINE AUTO 3 /HPF (0-3); SPECIFIC GRAVITY URINE AUTO 1.026 (1.002-1.035); SQUAMOUS EPITHELIAL CELL UR AU 0 /HPF (0-6); UROBILINOGEN, URINE AUTO 0.2 mg/dL (0.0-2.0); WBC, URINE AUTO 1 /HPF (0-3)
[2023-03-18] MEDS ORDERED: ISOVUE-370 76% 100ML VIAL As Ordered ONE (14:23)
[2023-03-18] MEDS ORDERED: cefTRIAXone SOD 2 GM in D5W MINI-BAG PLUS 50 ML IV ONE (16:40)
[2023-03-18] MEDS ORDERED: DOXYCYCLINE HYCLATE 100 MG in D5W MINI-BAG PLUS 100 ML IV ONE (16:40)
[2023-03-18] MEDS ORDERED: INSULIN LISPRO (NovoLOG) PER UNIT SC STA (17:07)
[2023-03-18] MEDS ORDERED: GLUCAGON INJ 1MG VIAL SC PRN (17:20)
[2023-03-18] MEDS ORDERED: GLUCOSE 4GM CHEW TABLET PO PRN (17:20)
[2023-03-18] MEDS ORDERED: DEXTROSE 50% 50ML SYRINGE IV PRN (17:20)
[2023-03-18] MEDS ORDERED: ONDANSETRON 4MG 2ML VIAL IV PRN (17:20)
[2023-03-18 18:10] LABS: HEMOGLOBIN A1c 8.8 % (4.0-6.0)
[2023-03-18] MEDS: SODIUM CHLORIDE 0.9% INJ 10 ML SYR IV PRN (18:10)
[2023-03-18] MEDS ORDERED: LISI10TA22 PO (18:32)
[2023-03-18] MEDS ORDERED: XALA0.007 OS (18:32)
[2023-03-18] MEDS ORDERED: GABA-1171 PO (18:32)
[2023-03-18] MEDS ORDERED: PREN1CHW PO (18:32)
[2023-03-18] MEDS ORDERED: HOME MED LIST COMPLETE! XX SCH (18:35)
[2023-03-18 18:40] VITALS: BP 117/58
[2023-03-18] MEDS: PANTOPRAZOLE 40MG TAB (PROTONIX) PO SCH (19:26)
[2023-03-18] MEDS: NS 1,000 ML IV SCH (19:27)
[2023-03-18] MEDS: INSULIN LISPRO (NovoLOG) PER UNIT SC SCH ×2 (19:27→22:28)
[2023-03-18] MEDS ORDERED: LEVEMIR (INSULIN DETEMIR) 1 UNITS/0.01ML SC ONE (20:00)
[2023-03-18] MEDS: GABAPENTIN 100 MG CAP PO SCH (21:11)
[2023-03-18] MEDS: ENOXAPARIN 40MG/0.4ML SYRINGE (J1650 PER 10MG) SC SCH (21:11)
[2023-03-18] MEDS: ALBUTEROL SULFATE 2.5MG/0.5ML INH NEB SOLN NEB SCH (21:36)
[2023-03-18] MEDS: CEFEPIME HCL 2 GM in D5W MINI-BAG PLUS 50 ML IV SCH (22:28)
[2023-03-19] VITALS (8 sets, daily range): BP systolic 104–161; BP diastolic 40–72; O2SAT 93
[2023-03-19] MEDS: ALBUTEROL SULFATE 2.5MG/0.5ML INH NEB SOLN NEB SCH ×4 (02:14→19:56)
[2023-03-19 07:25] LABS: BASO % 0.5 % (0.0-1.0); EOS # 0.2 10^3/uL (0.0-0.5); EOS % 2.5 % (0.0-3.0); HEMATOCRIT 33.4 % (36.0-47.0); HEMOGLOBIN 10.5 g/dl (12.0-15.5); LYMPH # 1.9 10^3/uL (1.5-5.0); LYMPH % 22.7 % (24.0-44.0); MEAN CORPUSCULAR HEMOGLOBIN 29.2 pg (27.0-33.0); MEAN CORPUSCULAR HGB CONC 31.4 g/dl (32.0-36.5); MONO # 0.7 10^3/uL (0.0-0.8); MONO % 8.6 % (2.0-8.0); NEUTROPHILS # 5.6 10^3/uL (1.5-8.5); NEUTROPHILS % 65.5 % (36.0-66.0); PLATELET COUNT, AUTOMATED 131 10^3/uL (150-450); RED BLOOD COUNT 3.59 10^6/uL (4.00-5.40); WHITE BLOOD COUNT 8.5 10^3/uL (4.0-10.0)
[2023-03-19] MEDS: INSULIN LISPRO (NovoLOG) PER UNIT SC SCH ×4 (07:30→21:00)
[2023-03-19 07:43] LABS: ALBUMIN 2.2 G/DL (3.2-5.2); ALKALINE PHOSPHATASE 77 U/L (46-116); ALT/SGPT 37 U/L (7.0-40); AST/SGOT 56 U/L (<34); BILIRUBIN,TOTAL 0.6 MG/DL (0.3-1.2); BLOOD UREA NITROGEN 20 MG/DL (9-23); CALCIUM LEVEL 9.2 MG/DL (8.3-10.6); CARBON DIOXIDE LEVEL 30 MMOL/L (20-31); CHLORIDE LEVEL 109 MMOL/L (98-107); CREATININE FOR GFR 0.78 MG/DL (0.55-1.30); GLOMERULAR FILTRATION RATE > 60.0 (>45); GLUCOSE, FASTING 42 MG/DL (74-106); PHOSPHORUS LEVEL 2.2 MG/DL (2.4-5.1); POTASSIUM SERUM 3.2 MMOL/L (3.5-5.1); SODIUM LEVEL 143 MMOL/L (136-145); TOTAL PROTEIN 5.6 G/DL (5.7-8.2)
[2023-03-19] MEDS: DOXYCYCLINE HYCLATE 100MG TABLET PO SCH ×2 (08:42→21:25)
[2023-03-19] MEDS: PANTOPRAZOLE 40MG TAB (PROTONIX) PO SCH (08:42)
[2023-03-19] MEDS: NS 1,000 ML IV SCH (08:43)
[2023-03-19] MEDS ORDERED: PERCOCET 5MG/325MG TAB PO PRN (08:55)
[2023-03-19] MEDS ORDERED: OMEPRAZOLE 20MG CAP PO SCH (09:00)
[2023-03-19] MEDS ORDERED: VITAMIN D 1,000 INTERNATIONAL UNITS TABLET PO SCH (09:00)
[2023-03-19] MEDS: DORZOLAMIDE 2% OPHTH SOLN 10 ML BTL OS SCH ×3 (09:00→21:26)
[2023-03-19] MEDS ORDERED: LEVEMIR (INSULIN DETEMIR) 1 UNITS/0.01ML SC SCH (09:00)
[2023-03-19] MEDS: LATANOPROST 0.005% OPHTH SOLN 2.5 ML OS SCH ×2 (09:00→21:26)
[2023-03-19] MEDS: TIMOLOL MALEATE 0.5% OPHTH SOLN 5 ML OS SCH ×2 (09:00→21:26)
[2023-03-19] MEDS: CEFEPIME HCL 2 GM in D5W MINI-BAG PLUS 50 ML IV SCH ×2 (10:12→23:53)
[2023-03-19] MEDS: SERTRALINE HCL 50 MG TAB PO SCH (10:12)
[2023-03-19] MEDS ORDERED: POTASSIUM PHOSPHATE INJ 30 MMOL in D5W 500 ML IV ONE (11:00)
[2023-03-19] MEDS: VITAMIN E 400 INTERNATIONAL UNITS CAP PO SCH (11:16)
[2023-03-19] MEDS ORDERED: ACETAMINOPHEN TAB 650MG DOSE (2X325MG) PO PRN (20:20)
[2023-03-19] MEDS ORDERED: VITAMIN B COMPLEX/VIT C CAP PO SCH (21:00)
[2023-03-19] MEDS ORDERED: CETIRIZINE (ZyrTEC) 10 MG TAB PO SCH (21:00)
[2023-03-19] MEDS: GABAPENTIN 100 MG CAP PO SCH (21:25)
[2023-03-19] MEDS: ENOXAPARIN 40MG/0.4ML SYRINGE (J1650 PER 10MG) SC SCH (21:26)
[2023-03-20] MEDS: ALBUTEROL SULFATE 2.5MG/0.5ML INH NEB SOLN NEB SCH ×2 (01:19→06:11)
[2023-03-20 04:00] VITALS: BP 141/62
[2023-03-20] MEDS ORDERED: LevoFLOXacin 750 MG TABLET PO SCH (06:00)
[2023-03-20 06:25] LABS: BASO % 0.4 % (0.0-1.0); EOS # 0.2 10^3/uL (0.0-0.5); EOS % 2.6 % (0.0-3.0); HEMATOCRIT 34.8 % (36.0-47.0); LYMPH # 1.1 10^3/uL (1.5-5.0); LYMPH % 16.3 % (24.0-44.0); MEAN CORPUSCULAR HEMOGLOBIN 29.2 pg (27.0-33.0); MEAN CORPUSCULAR HGB CONC 31.6 g/dl (32.0-36.5); MEAN CORPUSCULAR VOLUME 92.3 fl (80.0-96.0); MONO # 0.7 10^3/uL (0.0-0.8); MONO % 10.6 % (2.0-8.0); NEUTROPHILS # 4.7 10^3/uL (1.5-8.5); NEUTROPHILS % 69.8 % (36.0-66.0); PLATELET COUNT, AUTOMATED 119 10^3/uL (150-450); RED BLOOD COUNT 3.77 10^6/uL (4.00-5.40); WHITE BLOOD COUNT 6.8 10^3/uL (4.0-10.0)
[2023-03-20 07:04] LABS: BLOOD UREA NITROGEN 17 MG/DL (9-23); CALCIUM LEVEL 8.6 MG/DL (8.3-10.6); CARBON DIOXIDE LEVEL 28 MMOL/L (20-31); CHLORIDE LEVEL 103 MMOL/L (98-107); GLOMERULAR FILTRATION RATE > 60.0 (>45); GLUCOSE, FASTING 451 MG/DL (74-106); POTASSIUM SERUM 4.3 MMOL/L (3.5-5.1); SODIUM LEVEL 135 MMOL/L (136-145)
[2023-03-20] MEDS: INSULIN LISPRO (NovoLOG) PER UNIT SC SCH ×2 (07:16→12:00)
[2023-03-20] MEDS: LATANOPROST 0.005% OPHTH SOLN 2.5 ML OS SCH (08:58)
[2023-03-20] MEDS: TIMOLOL MALEATE 0.5% OPHTH SOLN 5 ML OS SCH (08:58)
[2023-03-20] MEDS: SERTRALINE HCL 50 MG TAB PO SCH (08:58)
[2023-03-20] MEDS: VITAMIN E 400 INTERNATIONAL UNITS CAP PO SCH (08:58)
[2023-03-20] MEDS: DORZOLAMIDE 2% OPHTH SOLN 10 ML BTL OS SCH (08:58)
[2023-03-20] MEDS ORDERED: LEVEMIR (INSULIN DETEMIR) 1 UNITS/0.01ML SC SCH ×2 (09:00)
[2023-03-20] MEDS ORDERED: LEVO1TAB40 PO (10:06)
[2023-03-20] MEDS ORDERED: INSULANT SC (10:06)
[2023-03-20] MEDS: SODIUM CHLORIDE 0.9% INJ 10 ML SYR IV PRN (13:17)
== END 2023-03-20 14:30 | disposition home or self-care (01) | DRG 871 ==
LOC: M ED 10:08 → M ED INP 17:12 → M PCU 18:33
PROVIDERS: ADMIT Internal Medicine; ATTEND Internal Medicine
DX: A41.9 Sepsis, unspecified organism (principal); J15.1 Pneumonia due to Pseudomonas; J96.01 Acute respiratory failure with hypoxia; R04.2 Hemoptysis; D84.9 Immunodeficiency, unspecified; K86.2 Cyst of pancreas; R59.9 Enlarged lymph nodes, unspecified; I10 Essential (primary) hypertension; K21.9 Gastro-esophageal reflux disease without esophagitis; C50.919 Malignant neoplasm of unspecified site of unspecified female breast; K52.9 Noninfective gastroenteritis and colitis, unspecified; E11.319 Type 2 diabetes mellitus with unspecified diabetic retinopathy without macular edema; E11.649 Type 2 diabetes mellitus with hypoglycemia without coma; D64.9 Anemia, unspecified; G89.29 Other chronic pain; J30.9 Allergic rhinitis, unspecified; E83.39 Other disorders of phosphorus metabolism; Z79.4 Long term (current) use of insulin; K20.90 Esophagitis, unspecified without bleeding; E87.6 Hypokalemia; R16.1 Splenomegaly, not elsewhere classified; F32.A Depression, unspecified; R91.8 Other nonspecific abnormal finding of lung field; Z88.2 Allergy status to sulfonamides; Z79.899 Other long term (current) drug therapy; Z66 Do not resuscitate; Z92.21 Personal history of antineoplastic chemotherapy

== ENCOUNTER → 2023-04-20 | Outpatient (CLI) | payer MEDICARE, MEDICAID ==
[~2023-04-20] MED LIST changes: +GABA-1171 PO; +INSU100I38 SQ; +LEVO1TAB40 PO; +PREN1CHW PO; +XALA0.007 OS
== END ==
LOC: M RAD 13:30
PROVIDERS: ATTEND Internal Medicine Medical Oncology
DX: C50.919 Malignant neoplasm of unspecified site of unspecified female breast (principal)

== ENCOUNTER → 2023-05-04 | Outpatient (CLI) | payer MEDICARE, MEDICAID | LOC: M RAD 07:41 | PROVIDERS: ATTEND Internal Medicine Medical Oncology | DX: C50.919 Malignant neoplasm of unspecified site of unspecified female breast (principal); M25.552 Pain in left hip | CPT/HCPCS: 78306; A9503 ==

== ENCOUNTER → 2023-05-11 | Outpatient (CLI) | payer MEDICARE, MEDICAID | LOC: M CARPUL 11:08 | PROVIDERS: ATTEND Internal Medicine Medical Oncology | DX: I42.7 Cardiomyopathy due to drug and external agent (principal) ==

== ENCOUNTER → 2023-05-29 | Outpatient (CLI) | payer MEDICARE, MEDICAID | LOC: M RAD 13:07 | PROVIDERS: ATTEND Internal Medicine Critical Care Medicine | DX: J98.11 Atelectasis (principal); I25.10 Atherosclerotic heart disease of native coronary artery without angina pectoris ==

== ENCOUNTER → 2023-06-14 | Outpatient (CLI) | payer MEDICARE, MEDICAID | LOC: M SOG 08:01 | PROVIDERS: ATTEND Physician Assistant | DX: M25.531 Pain in right wrist (principal); M25.532 Pain in left wrist; R93.7 Abnormal findings on diagnostic imaging of other parts of musculoskeletal system ==

== ENCOUNTER → 2023-07-09 | Outpatient (CLI) | payer MEDICARE, MEDICAID | LOC: M PLARAD 08:26 | PROVIDERS: ATTEND Internal Medicine Medical Oncology | DX: C50.812 Malignant neoplasm of overlapping sites of left female breast (principal); R91.8 Other nonspecific abnormal finding of lung field | CPT/HCPCS: 78815; A9552 ==